=== PATIENT | male | born 1955 | race Caucasian/White ===

== ENCOUNTER 2019-05-07 10:27 | Inpatient (IN) ==
[2019-05-07] MEDS ORDERED: SODIUM CHLORIDE 0.9% 1000ML 1,000 ML IV ONE (11:21)
[2019-05-07 11:37] LABS: Basophils # (auto) 0.03 K/uL (0-0.2); Basophils % (auto) 0.3 %; Eosinophils # (auto) 0.08 K/uL (0-0.5); Eosinophils % (auto) 0.8 %; Hematocrit (blood only) 46.1 % (42-52); Hemoglobin 15.4 g/dL (14.0-18.0); Immature Granulocytes # (auto) 0.02 K/uL (0.00-0.02); Immature Granulocytes % (auto) 0.2 %; Lymphocytes # (auto) 1.75 K/uL (1.2-3.4); Lymphocytes % (auto) 17.6 %; Mean Corpuscular Hgb Conc 33.4 g/dL (32-36); Mean Corpuscular Volume 86.8 fL (80-100); Mean Platelet Volume 11.1 fL (7.4-10.4); Monocytes # (auto) 0.92 K/uL (0.11-0.59); Monocytes % (auto) 9.3 %; Neutrophils # (auto) 7.12 K/uL (1.4-6.5); Neutrophils % (auto) 71.8 %; Platelet Count 194 K/uL (130-400); RDW Coefficient of Variation 14.1 % (11.5-14.5); RDW Standard Deviation 44.8 fL (36.4-46.3); Red Blood Count 5.31 M/uL (4.7-6.1); White Blood Count 9.92 K/uL (4.8-10.8)
--- NOTE | 2019-05-07 11:42 | Emergency Department Note ---
History of Present Illness General Chief complaint: Respiratory Problems Stated complaint: CANNOT BREATH Time Seen by Provider: 05/07/19 11:02 History of Present Illness 54-year-old male who presents to the emergency department with complaint of shortness of breath, fatigue, getting winded with walking, and mild chest discomfort. The patient reports that he noticed that he had no energy 2 weeks ago. He did not have any chest discomfort at that time. Over the past 3 days, he now reports that he can only walk about 10 steps before he gets winded and has to stop for several minutes before walking a another 10 steps. The patient has never had this before in the past. The patient denies any personal or f amily history of heart disease. The patient has not noticed any swelling of the legs. The patient has not had any recent upper respiratory infections. Patient takes medicine for acid reflux and blood pressure, however he has not taken his medicines for approximately 2 months as his insurance changed at work. He reports that his PCP in [place], Dr. Wyman, does not take his insurance. He is in the process of trying to find another PCP. The patient did take 2 ibuprofen this morning for the discomfort. The patient currently denies any chest pain. Home Medications Home Medications Medication Instructions Recorded Confirmed Type esomeprazole magnesium [Nexium] 20 mg PO DAILY 05/07/19 05/07/19 History Allergies Allergy/AdvReac Type Severity Reaction Status Date / Time shrimp Allergy Swelling Unverified 05/07/19 12:10 of Lip/Tongue/Throat Past Med/Surg History Medical History (Updated 05/07/19 @ 20:43 by Kapil Hoffmann) GERD (gastroesophageal reflux disease) GERD (gastroesophageal reflux disease) Hypertension Obstructive sleep apnea Surgical History No significant past surgical history Social History Preferred Language: Slovenian Communication Ability: Effective Writer Producer Required: No Beliefs That Will Affect Care: None Current Living Situation: Alone Other Information That Helps Us Care for You: No Feels Safe at Home: Yes Safety Concerns: Feels Safe At This Time Smoking Status: Never smoker Do You Dip or Chew Tobacco: No ; Second Hand Exposure: No ; Tobacco Cessation Education Requested by Patient: No Hx Alcohol Use: No Hx Substance Use: No Review of Systems 10 system review was performed and was negative except for pertinent positives and negatives as indicated in history of present illness Physical Exam Vital Signs Vital Signs - 24 hr 05/07/19 10:39 05/07/19 10:57 05/07/19 11:00 Temperature 36.5 C Temperature Source Oral Pulse Rate 110 H 117 H 109 H Pulse Rate from SpO2 Sensor Respiratory Rate 28 H 15 14 Respiratory Effort / Characteristics Respiratory Depth Respiratory Pattern Blood Pressure 163/86 H Blood Pressure Mean 111 Pulse Oximetry 96 Oxygen Delivery Method Room Air Sepsis Recent Fever Within 48 Hours No Sepsis New/Unexplained Change in Mental Status No Sepsis Action Taken by Nursing No Action Required 05/07/19 11:03 05/07/19 11:25 05/07/19 11:30 Temperature Temperature Source Pulse Rate 107 H Pulse Rate from SpO2 Sensor Respiratory Rate 18 Respiratory Effort / Characteristics Non-Labored Spontaneous Respiratory Depth Normal Respiratory Pattern Regular Blood Pressure Blood Pressure Mean Pulse Oximetry 97 Oxygen Delivery Method Room Air Room Air Sepsis Recent Fever Within 48 Hours Sepsis New/Unexplained Change in Mental Status Sepsis Action Taken by Nursing 05/07/19 12:00 05/07/19 12:25 05/07/19 12:26 Temperature Temperature Source Pulse Rate 105 H 108 H 104 H Pulse Rate from SpO2 Sensor 94 H 105 H Respiratory Rate 16 16 19 Respiratory Effort / Characteristics Respiratory Depth Respiratory Pattern Blood Pressure 135/95 Blood Pressure Mean 99 Pulse Oximetry 95 96 Oxygen Delivery Method Room Air Room Air Sepsis Recent Fever Within 48 Hours Sepsis New/Unexplained Change in Mental Status Sepsis Action Taken by Nursing 05/07/19 12:30 05/07/19 13:00 05/07/19 13:01 Temperature Temperature Source Pulse Rate 103 H 96 H 100 H Pulse Rate from SpO2 Sensor 88 96 H 104 H Respiratory Rate 16 18 16 Respiratory Effort / Characteristics Respiratory Depth Respiratory Pattern Blood Pressure Blood Pressure Mean Pulse Oximetry 97 97 97 Oxygen Delivery Method Room Air Room Air Room Air Sepsis Recent Fever Within 48 Hours Sepsis New/Unexplained Change in Mental Status Sepsis Action Taken by Nursing CONSTITUTIONAL: Morbidly obese male, alert and oriented X 3. Does not appear in any acute distress. HEENT: Normocephalic, atraumatic. Pupils equal, round and reactive. No scleral icterus or conjunctival injection/pallor. NECK: Full active range of motion without discomfort. No JVD or carotid bruits. LYMPHATICS: No cervical chain adenopathy. RESPIRATORY: Clear to auscultation bilaterally with no wheezing, crackles, rhonchi or stridor. CARDIOVASCULAR: Irregular rate and rhythm with no murmurs, rubs or gallops appreciated. GASTROINTESTINAL: Bowel sounds present in all quadrants. Soft and nontender to palpation without hepatosplenomegaly. MUSCULOSKELETAL: Full range of motion of all joints without discomfort. No peripheral edema noted. INTEGUMENTARY: No rash or other significant dermatologic conditions noted. HEMATOLOGIC: No ecchymosis or petechiae. PSYCHIATRIC: Positive affect. NEUROLOGIC: No focal neurologic deficits noted. Course Course Patient history and physical exam were performed. Nurse's notes were reviewed. Vital signs were reviewed, showing an elevated blood pressure of 163/86. Triage pulse rate was 110 with a respiratory rate of 28. O2 saturation was 97% on room air. An ECG was performed in triage, showing atrial fibrillation with a rapid ventricular response of 109 bpm. An incomplete right bundle branch block is also noted. I did review medical records at our facility, and do not see any prior ECGs for comparison. The patient again reports no prior history of atrial fibrillation or other heart disease. IV access was established, and labs were drawn. The patient was hydrated with a liter of normal saline. The patient was placed on lead custodian. During my interview, the patient's heart rate did reach into the upper 120s, but then came back into the lower 100s. I also discussed the case with Dr. Robertson, ED attending physician, who did not recommend medications for rate control at this time. The patient was administered IV heparin with a 5000 unit bolus. Labs were reviewed, showing a mildly bumped troponin. The patient was then administered aspirin 324 mg chew. Otherwise remaining labs were grossly normal. A portable chest x-ray shows mild cardiomegaly without any other acute findings. The case was then discussed with the ed case manager, who contacted Dr. Buenrostro with the [facility] hospitalist service. He will further evaluate the patient for admission, and has requested that we order metoprolol 5 mg IVP for rate control. I did offer to call and speak with cardiology, but Dr. Buenrostro reported that he would do this for us. Please see the hospitalist service's dictations for further treatment and final disposition. Administered Medications Acetaminophen (Tylenol) 650 mg PO Q4H PRN PRN Reason: Pain Stop: 06/06/19 17:07 Last Admin: 05/07/19 17:20 Dose: 650 mg Documented by: [id number] Heparin Sodium/Dextrose (Heparin Sodium/Dextrose) 25,000 units in 500 mls @ 37 mls/hr IV .[id number] [facility]; Protocol Stop: 06/06/19 11:29 Last Titration: 05/07/19 19:08 Dose: 1,850 units/hr, 37 mls/hr Documented by: [id number] Cosigned by: [id number] Titration: 05/07/19 14:59 Dose: 1,850 units/hr, 37 mls/hr Documented by: [id number] Cosigned by: [id number] Admin: 05/07/19 12:20 Dose: 1,850 units/hr, 37 mls/hr Documented by: [id number] Cosigned by: [id number] Metoprolol Tartrate (Lopressor) 50 mg PO BID [facility] Stop: 06/06/19 20:59 Last Admin: 05/07/19 20:07 Dose: 50 mg Documented by: [id number] Discontinued Medications Aspirin (Aspirin Chew) 324 mg PO NOW STA Stop: 05/07/19 12:31 Last Admin: 05/07/19 12:48 Dose: 324 mg Documented by: [id number] Heparin Sodium (Porcine) (Heparin Iv Bolus) Confirm Administered Dose 10,000 units .ROUTE .STK-MED ONE Stop: 05/07/19 12:13 Last Admin: 05/07/19 12:19 Dose: 5,000 units Documented by: [id number] Cosigned by: [id number] Heparin Sodium/Dextrose () 1 ea IV NOW STA; Protocol Stop: 05/07/19 11:22 Last Admin: 05/07/19 12:19 Dose: Not Given Documented by: [id number] Sodium Chloride (Nss 1000ml) 1,000 mls @ 999 mls/hr IV .[id number] ONE Stop: 05/07/19 12:21 Last Infusion: 05/07/19 13:19 Dose: 0 mls/hr Documented by: [id number] Admin: 05/07/19 12:18 Dose: 999 mls/hr Documented by: [id number] Metoprolol Tartrate (Lopressor) 5 mg IV NOW STA Stop: 05/07/19 12:31 Last Admin: 05/07/19 13:57 Dose: Not Given Documented by: [id number] Metoprolol Tartrate (Lopressor) 25 mg PO ONE ONE Stop: 05/07/19 13:25 Last Admin: 05/07/19 14:04 Dose: 25 mg Documented by: [id number] Critical Care Time Critical Care Time: Yes Total Critical Care Time: 40 I have personally approximately 40 minutes of critical care time in the direct management of this patient. This includes bedside care, interpretation of diagnostic studies, and testing, discussion with consultants, patient, and family members, and other required patient management activities. This 40 minutes is in excess of all separately billable procedures. It was felt that the patient met critical care criteria, requiring intravenous heparin. I did discuss the risks of bleeding with the patient, and he agreed to heparin administration, and to further reduce the risk for embolus. Medical Decision Making Medical Records Attestation: I reviewed the patient's medical records. Home Medications Current Medication List: was personally reviewed by me Laboratory Data Attestation: I reviewed the patient's lab results. Result diagrams: 05/07/19 11:21 05/07/19 11:21 Lab Results 05/07/19 05/07/19 05/07/19 Range/Units 11:21 11:21 11:21 WBC 9.92 (4.8-10.8) K/uL RBC 5.31 (4.7-6.1) M/uL Hgb 15.4 (14.0-18.0) g/dL Hct 46.1 (42-52) % MCV 86.8 (80-100) fL MCH 29.0 (25-34) pg MCHC 33.4 (32-36) g/dL RDW Std Deviation 44.8 (36.4-46.3) fL RDW Coeff of Robert 14.1 (11.5-14.5) % Plt Count 194 (130-400) K/uL MPV 11.1 H (7.4-10.4) fL Immature Gran % (Auto) 0.2 % Neut % (Auto) 71.8 % Lymph % (Auto) 17.6 % [place] % (Auto) 9.3 % Eos % (Auto) 0.8 % Baso % (Auto) 0.3 % Immature Gran # (Auto) 0.02 (0.00-0.02) K/uL Neut # (Auto) 7.12 H (1.4-6.5) K/uL Lymph # (Auto) 1.75 (1.2-3.4) K/uL [place] # (Auto) 0.92 H (0.11-0.59) K/uL Eos # (Auto) 0.08 (0-0.5) K/uL Baso # (Auto) 0.03 (0-0.2) K/uL PT 10.9 (9.0-12.0) Seconds INR 1.1 (0.9-1.1) APTT 26.7 (21.0-31.0) Seconds PTT Ratio 1.0 Sodium 140 (136-145) mmol/L Potassium 3.6 (3.5-5.1) mmol/L Chloride 107 (98-107) mmol/L Carbon Dioxide 27 (21-32) mmol/L Anion Gap 6.0 (3-11) BUN 17 (7-18) mg/dl Creatinine 1.15 (0.6-1.4) mg/dl Est Cr Clr Drug Dosing 95.8 ml/min Est GFR ( Amer) 78.6 Est GFR (Non-Af Amer) 67.8 BUN/Creatinine Ratio 15.1 (10-20) Glucose 111 H (70-99) mg/dl Calcium 8.7 (8.5-10.1) mg/dl Phosphorus 2.6 (2.5-4.9) mg/dl Magnesium 2.3 (1.8-2.4) mg/dl Total Bilirubin 1.2 H (0.2-1) mg/dl AST 17 (15-37) U/L ALT 37 (12-78) U/L Alkaline Phosphatase 69 (45-117) U/L Troponin I 0.047 H* (0-0.045) ng/ml NT-Pro-B Natriuret Pep (0-900) pg/ml Total Protein 6.9 (6.4-8.2) gm/dl Albumin 3.5 (3.4-5.0) gm/dl Globulin 3.4 (2.5-4.0) gm/dl Albumin/Globulin Ratio 1.0 (0.9-2) Lipase 70 L (73-393) U/L TSH 1.100 (0.300-4.500) uIu/ml Hepatitis C Ab Screen (Neg) 05/07/19 05/07/19 Range/Units 11:21 11:21 WBC (4.8-10.8) K/uL RBC (4.7-6.1) M/uL Hgb (14.0-18.0) g/dL Hct (42-52) % MCV (80-100) fL MCH (25-34) pg MCHC (32-36) g/dL RDW Std Deviation (36.4-46.3) fL RDW Coeff of Robert (11.5-14.5) % Plt Count (130-400) K/uL MPV (7.4-10.4) fL Immature Gran % (Auto) % Neut % (Auto) % Lymph % (Auto) % [place] % (Auto) % Eos % (Auto) % Baso % (Auto) % Immature Gran # (Auto) (0.00-0.02) K/uL Neut # (Auto) (1.4-6.5) K/uL Lymph # (Auto) (1.2-3.4) K/uL [place] # (Auto) (0.11-0.59) K/uL Eos # (Auto) (0-0.5) K/uL Baso # (Auto) (0-0.2) K/uL PT (9.0-12.0) Seconds INR (0.9-1.1) APTT (21.0-31.0) Seconds PTT Ratio Sodium (136-145) mmol/L Potassium (3.5-5.1) mmol/L Chloride (98-107) mmol/L Carbon Dioxide (21-32) mmol/L Anion Gap (3-11) BUN (7-18) mg/dl Creatinine (0.6-1.4) mg/dl Est Cr Clr Drug Dosing ml/min Est GFR ( Amer) Est GFR (Non-Af Amer) BUN/Creatinine Ratio (10-20) Glucose (70-99) mg/dl Calcium (8.5-10.1) mg/dl Phosphorus (2.5-4.9) mg/dl Magnesium (1.8-2.4) mg/dl Total Bilirubin (0.2-1) mg/dl AST (15-37) U/L ALT (12-78) U/L Alkaline Phosphatase (45-117) U/L Troponin I (0-0.045) ng/ml NT-Pro-B Natriuret Pep 3645 H (0-900) pg/ml Total Protein (6.4-8.2) gm/dl Albumin (3.4-5.0) gm/dl Globulin (2.5-4.0) gm/dl Albumin/Globulin Ratio (0.9-2) Lipase (73-393) U/L TSH (0.300-4.500) uIu/ml Hepatitis C Ab Screen Neg (Neg) Imaging Data Attestation: I personally reviewed and interpreted this imaging study as follows: My Impression: My interpretation of a portable chest x-ray does not show any consolidations, pneumothorax or widened mediastinum. Mild cardiomegaly is noted. Radiologist report was reviewed. Radiologist's Impression: XR chest 1V portable CLINICAL HISTORY: 64 years-old Male presenting with Chest Pain. TECHNIQUE: Portable upright AP view of the chest was obtained. COMPARISON: None. FINDINGS: Cardiac silhouette mildly enlarged. No focal opacity. No large effusion or pneumothorax. Degenerative changes of the thoracic spine. Upper abdomen normal. IMPRESSION: 1. Mild cardiomegaly. Otherwise no acute cardiopulmonary disease. Blood Pressure Blood Pressure Findings: Elevated blood pressure (It is noted that the patient's blood pressure did normalize while in the emergency department.) MDM Narrative Patient presents the emergency department with complaint of fatigue and dyspnea on exertion. The patient's ECG does show atrial fibrillation with a rapid ventricular response that had good rate control while in the emergency department. He also has a mildly bumped troponin of unknown significance. The patient was admitted IV heparin and aspirin for his condition. The patient's heart rate did remain in the lower 100s, and rate control was not ordered until discussing the case with Dr. Buenrostro. The patient is afebrile and does not have a leukocytosis to suggest infectious etiology. The patient is hemodynamically stable at the time of transfer. There are no other electrolyte abnormalities noted on today's work-up. The patient is euthyroid. The patient was administered IV heparin given his risk of embolus. Impression & Plan New onset atrial fibrillation, Hypertension, Elevated troponin, Dyspnea on exertion, Cardiomegaly Discharge Plan Visit Data *Final* Discharge Date/Time: 05/07/19 14:30 Chief Complaint: Respiratory Problems Stated Complaint: CANNOT BREATH ED Provider: Tomas Robertson ED Midlevel Provider: Kapil Hoffmann Discharge Problem: New onset atrial fibrillation, Hypertension, Elevated troponin, Dyspnea on exertion, Cardiomegaly Patient Disposition: Admitted As Inpatient Discharge Instructions Interventions: ED Discharge Assessment Last Done: 05/07/19 14:30 Discharge Problem: Hypertension Qualifiers: Hypertension type: unspecified secondary hypertension Qualified Code(s): I15.9 - Secondary hypertension, unspecified
--- NOTE | 2019-05-07 11:44 | XRay Report ---
XR chest 1V portable CLINICAL HISTORY: 64 years-old Male presenting with Chest Pain. TECHNIQUE: Portable upright AP view of the chest was obtained. COMPARISON: None. FINDINGS: Cardiac silhouette mildly enlarged. No focal opacity. No large effusion or pneumothorax. Degenerative changes of the thoracic spine. Upper abdomen normal. IMPRESSION: 1. Mild cardiomegaly. Otherwise no acute cardiopulmonary disease. ACT 112: Negative or not required by law. Electronically signed by: Getachew Sanchez M.D. 05/07/2019 11:42 AM
[2019-05-07 11:51] LABS: INR 1.1 (0.9-1.1); Partial Thromboplastin Time 26.7 Seconds (21.0-31.0); Prothrombin Time 10.9 Seconds (9.0-12.0)
[2019-05-07 12:00] LABS: Albumin Level 3.5 gm/dl (3.4-5.0); BUN Creatinine Ratio 15.1 (10-20); Calcium 8.7 mg/dl (8.5-10.1); Creatinine Clr Calc Pharmacy 95.8 ml/min; Est GFR (African American) 78.6; Est GFR (Non-African American) 67.8; Magnesium 2.3 mg/dl (1.8-2.4); Potassium 3.6 mmol/L (3.5-5.1)
[2019-05-07] MEDS ORDERED: HEPARIN SOD (PORCINE) 1000 UNIT/ML 10 ML VIAL ONE (12:12)
[2019-05-07 12:17] LABS: Bilirubin,Total 1.2 mg/dl (0.2-1); Globulin 3.4 gm/dl (2.5-4.0); Phosphorus 2.6 mg/dl (2.5-4.9); Thyroid Stimulating Hormone 1.1 uIu/ml (0.300-4.500); Total Protein 6.9 gm/dl (6.4-8.2); Troponin I 0.047 ng/ml (0-0.045)
[2019-05-07] MEDS: HEPARIN SODIUM/DEXTROSE 25,000 UNITS/500 ML BAG IV SCH (12:20)
[2019-05-07] MEDS ORDERED: ASPIRIN 81 MG CHEW PO STA (12:30)
[2019-05-07] MEDS ORDERED: METOPROLOL TARTRATE 1 MG/ML VIAL IV STA (12:30)
--- NOTE | 2019-05-07 12:46 | History & Physical Report ---
Date of Service May 07, 2019 Assessment & Plan (1) New onset atrial fibrillation: TSH WNL, No alcohol. Echocardiogram concerning for CAD with inferior wall severe hypokinesis therefore cardiology consulted (see below) Unclear onset therefore will avoid antiarrhythmics. Rate control with metoprolol tartrate 50mg BID (given 25mg initially). Anticoagulation: continue on heparin IV pending cardiac cath decision (2) Shortness of breath on exertion: Symptoms appear to be worse than just atrial fibrillation would explain and suspect some underlying coronary artery disease which would fit with his echocardiogram results. Suspect some degree of obesity hypoventilation in addition. No pulmonary edema on CXR to suggest patient in heart failure and will defer any lasix at this stage. Continue ASA 81 mg. Lipids and HbA1C with AM labs. Will start statin based upon these. (3) Elevated troponin: Appears relatively stable. Suspect demand-ischemia in setting of increased ventricular rate. No chest pain to suggest ACS. (4) Cardiomyopathy: presumed ischemic at this stage. Consult cardiology. (5) GERD (gastroesophageal reflux disease): Switch Nexium to pantoprazole as per hospital formulary (6) Hypertension: Previously on medication for this but stopped after he lost his insurance. Will treat with metoprolol for now primarily for rate control and monitor. (7) Obstructive sleep apnea: CPAP @ night (8) DVT prophylaxis: currently on full anticoagulation with heparin IV drip History of Present Illness Chief Complaint: Shortness of breath, atrial fibrillation/flutter Primary Care Provider: NO PCP Loco Robin is a 64 year old male patient unassigned who presented to the ER with shortness of breath on exertion getting progressively worse over the last 2 weeks. No previous known coronary artery or thyroid. He denies any alcohol use. He denies any chest pain, palpitations, leg swelling, claudication. No cough, fevers or chills. No significant change in his symptoms since coming to the ER. He has diagnosed obstructive sleep apnea and is complaint with CPAP. ER workup included labs with unremarkable CBC, total bilirubin 1.2 but otherwise unremarkable CMP. Troponin 0.047. EKG showed atrial fibrillation. CXR - cardiomegaly without acute cardiopulmonary disease He was given 1L bolus of NSS and started on a standard heparin drip with bolus. Allergies Allergy/AdvReac Type Severity Reaction Status Date / Time shrimp Allergy Swelling Unverified 05/07/19 12:10 of Lip/Tongue/Throat Home Medications Home Medications Medication Instructions Recorded Confirmed Type esomeprazole magnesium [Nexium] 20 mg PO DAILY 05/07/19 05/07/19 History Past Med/Surg History Medical History GERD (gastroesophageal reflux disease) Hypertension Surgical History No significant past surgical history Social History Preferred Language: Yoruba Communication Ability: Effective Title Camera Operator Required: No Beliefs That Will Affect Care: None Current Living Situation: Alone Other Information That Helps Us Care for You: No Feels Safe at Home: Yes Safety Concerns: Feels Safe At This Time Smoking Status: Never smoker Do You Dip or Chew Tobacco: No ; Second Hand Exposure: No ; Tobacco Cessation Education Requested by Patient: No Hx Alcohol Use: No Hx Substance Use: No Review of Systems Review of Systems: All systems reviewed & are unremarkable except as noted in HPI & below Physical Exam Constitutional: well developed and + morbidly obese; no acute distress Eyes: + anicteric sclerae; normal pupil size ENMT: external ear and nose normal, oropharynx normal Neck: trachea midline, + short neck and + thick neck Respiratory: normal respiratory effort, lungs clear to auscultation Cardiovascular: Rate/Rhythm: + irregularly irregular Heart Sounds: no murmur Vessels: + JVD (unable to assess due to neck size) Extremities: + pedal edema (1+ to thighs b/l) Gastrointestinal (Abdomen): normal bowel sounds, soft, nontender, no hepatosplenomegaly Musculoskeletal: no cyanosis or clubbing, extremities motor strength 5/5 Skin: no rashes, warm and dry Neurologic: moves all extremities and awake; no focal motor deficits and not confused Speech / Cognition: normal speech Motor/Sensory: no tremor Psychiatric: A+Ox3, euthymic affect Lymphatic: no cervical or axillary lymphadenopathy Results & Data Vital Signs (Past 12 Hours) Vital Signs Temp Pulse Resp BP Pulse Ox 05/07/19 12:25 108 H 16 135/95 95 05/07/19 12:00 105 H 16 05/07/19 11:30 107 H 18 05/07/19 11:25 97 05/07/19 11:00 109 H 14 05/07/19 10:57 117 H 15 05/07/19 10:39 36.5 C 110 H 28 H 163/86 H 96 Code Status & VTE Plan Code Status Full as discussed with the patient VTE Prophylaxis Plan VTE Prophylaxis will be ordered: Yes PG Care Time/CCT Total # of Minutes Spent Total Time Spent with Patient: Total time spent is greater than 50% in coordination of care (as documented) at patient's floor/unit and/or counseling patient: (1) GERD (gastroesophageal reflux disease) Esophagitis presence: without esophagitis Qualified Code(s): K21.9 - Gastro- esophageal reflux disease without esophagitis (2) Hypertension Hypertension type: essential hypertension Qualified Code(s): I10 - Essential (primary) hypertension (3) Cardiomyopathy Cardiomyopathy type: unspecified Qualified Code(s): I42.9 - Cardiomyopathy, unspecified
[2019-05-07] MEDS ORDERED: METOPROLOL TARTRATE 25 MG TAB PO ONE (13:24)
--- NOTE | 2019-05-07 16:05 | Electrocardiogram Report ---
Test Reason : Blood Pressure : / mmHG Vent. Rate : 109 BPM Atrial Rate : 092 BPM P-R Int : 000 ms QRS Dur : 094 ms QT Int : 326 ms P-R-T Axes : 000 024 -11 degrees QTc Int : 439 ms Atrial fibrillation with rapid ventricular response Incomplete right bundle branch block Abnormal ECG No previous ECGs available Confirmed by Raheem Hilliard ([id number]) on 05/07/2019 4:05:18 PM Referred By: Confirmed By:Raheem Hilliard
--- NOTE | 2019-05-07 16:29 | Electrocardiogram Report ---
Test Reason : Blood Pressure : / mmHG Vent. Rate : 085 BPM Atrial Rate : 000 BPM P-R Int : 000 ms QRS Dur : 108 ms QT Int : 424 ms P-R-T Axes : 000 076 -18 degrees QTc Int : 504 ms Atrial fibrillation Incomplete right bundle branch block Abnormal ECG When compared with ECG of 07-MAY-2019 10:51, No significant change Confirmed by Raheem Hilliard ([id number]) on 05/07/2019 4:28:50 PM Referred By: REFERRED SELF Confirmed By:Raheem Hilliard
[2019-05-07] MEDS: ACETAMINOPHEN 325 MG TAB PO PRN (17:20)
[2019-05-07 18:45] LABS: Partial Thromboplastin Ratio 2.2
[2019-05-07 18:49] LABS: Partial Thromboplastin Time 58.4 Seconds (21.0-31.0)
[2019-05-07] MEDS: METOPROLOL TARTRATE 50 MG TAB PO SCH (20:07)
[2019-05-07] MEDS ORDERED: METOPROLOL TARTRATE 25 MG TAB PO SCH (21:00)
[2019-05-08] MEDS: HEPARIN SODIUM/DEXTROSE 25,000 UNITS/500 ML BAG IV SCH ×2 (01:39→16:50)
[2019-05-08 07:19] LABS: Hematocrit (blood only) 43.4 % (42-52); Hemoglobin 14.7 g/dL (14.0-18.0); Mean Corpuscular Hemoglobin 29.4 pg (25-34); Mean Corpuscular Hgb Conc 33.9 g/dL (32-36); Mean Corpuscular Volume 86.8 fL (80-100); Mean Platelet Volume 11.1 fL (7.4-10.4); Platelet Count 198 K/uL (130-400); RDW Coefficient of Variation 14.1 % (11.5-14.5); RDW Standard Deviation 44.8 fL (36.4-46.3); White Blood Count 7.97 K/uL (4.8-10.8)
[2019-05-08 07:47] LABS: Partial Thromboplastin Ratio 2.5
[2019-05-08 07:49] LABS: Estimated Average Glucose 126 mg/dl
[2019-05-08 07:50] LABS: Partial Thromboplastin Time 66.4 Seconds (21.0-31.0)
[2019-05-08] MEDS: ACETAMINOPHEN 325 MG TAB PO PRN (07:50)
[2019-05-08] MEDS: PANTOprazole 40 MG TAB PO SCH (07:54)
[2019-05-08] MEDS: METOPROLOL TARTRATE 50 MG TAB PO SCH (07:54)
[2019-05-08] MEDS: ASPIRIN 81 MG ECTAB PO SCH (07:54)
[2019-05-08 07:55] LABS: Albumin Level 3.2 gm/dl (3.4-5.0); Bilirubin,Total 1.3 mg/dl (0.2-1); Calcium 8.6 mg/dl (8.5-10.1); Creatinine Clr Calc Pharmacy 111.4 ml/min; Est GFR (African American) 95.4; Est GFR (Non-African American) 82.3; Globulin 3.2 gm/dl (2.5-4.0); Potassium 3.6 mmol/L (3.5-5.1); Total Protein 6.4 gm/dl (6.4-8.2)
--- NOTE | 2019-05-08 09:26 | Cardiology Consultation ---
Date of Consultation May 08, 2019 Assessment & Plan (1) Shortness of breath on exertion: I suspect his dyspnea on exertion is primarily congestive heart failure not atrial fibrillation. The atrial fibrillation may contribute since he has not been feeling quite well for the last month, however the severe change several days prior to admission probably represents fluid overload. He feels better and seems to have lost some weight here in the hospital. He could also have shortness of breath as an anginal equivalent. (2) New onset atrial fibrillation: He presents in atrial fibrillation, but the duration is not clear. He does not feel palpitations so this could have occurred any time, I do not know when the last time it would have been observed is, he does not recall having any type of cardiac testing in the past. It could have started a month ago when he started to feel poorly although it could have occurred much before that and that may be related to his developing a cardiomyopathy. I would treated as though it is relatively recent onset, such as a month, and for that I would use rate control and anticoagulation and anticipate cardioversion in around a month. It is possible also that it is paroxysmal and that will resolve on its own. (3) Cardiomyopathy: He has a cardiomyopathy which includes wall motion abnormalities and this may be an ischemic cardiomyopathy although there is a global component as well. I suspect that he may have coronary disease based on his enzymes, his wall motion abnormality and the possibility of inferior Q waves even though he has no history of a myocardial infarction. I think we need to perform catheterization to see if we can identify cause of his cardiomyopathy. I will order some blood tests for cardiomyopathy, additionally it could be due to the atrial fibrillation itself or idiopathic although these are diagnoses of exclusion. We need to get him on appropriate heart failure medications for his left ventricular dysfunction. I am going to switch his metoprolol tartrate to carvedilol which should work for heart rate control and is better for his cardiomyopathy. He should also be on an ALEKSANDRA or an ARB or Entresto, I think I will hold off on doing that until after the catheterization in case it would affect his renal function. I have tentatively scheduled him for catheterization tomorrow. (4) Elevated troponin: His troponin is slightly elevated, this could indicate underlying coronary disease or could simply be demand ischemia from heart failure and hypertension. We will evaluate him for coronary artery disease at catheterization. (5) CHF exacerbation: I believe he is in congestive heart failure, I believe that is why he presented and his symptoms are consistent. I think we should diurese him a little bit prior to catheterization. I am going to order a diuretic today, I do not want to over diurese him but his creatinine is normal so it is not too concerning regarding his upcoming catheterization. (6) Mitral regurgitation: He has mild mitral regurgitation on echocardiography. This may be related to his left ventricular dilatation, perhaps with medical therapy this will correct. History of Present Illness Reason for Consultation: CHF, Elevated Troponin Attending Physician: Victoriano Buenrostro MD History of Present Illness This is a 64-year-old male with hypertension, hypercholesterolemia and obesity who has no known heart disease and had been in his usual health until about a month ago when he began to have some dyspnea on exertion. Possibly related he ran out of his medications as he is in the process of switching doctors due to insurance reasons. This was somewhat intermittent, it was not really associated with chest pain at the time although his description of chest tightness could be shortness of breath or anginal symptoms. 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 He was not having rest symptoms and he was not having orthopnea or PND at the time. He then developed significant worsening of his shortness of breath about 2 days prior to admission, especially at night which is consistent with orthopnea. He also noticed that when he exerted himself he can only walk about 10 steps before being quite short of breath and having a squeezing sensation in his chest. He would rest and it would go away in a few minutes. This was consistent and different therefore he came into the emergency room on May 07, 2019. He has had no further symptoms since admission. He does notice that he had a little bit of leg swelling on the left for a week or so, mostly he noticed this is little trouble bending his left knee when he put on his socks. In the emergency room he was observed to have atrial fibrillation of which he was completely unaware and has no prior history. He also had low-grade cardiac enzymes and echocardiography has shown left ventricular dysfunction with wall motion abnormalities. His chest x-ray was not diagnostic for heart failure but I believe he does have vascular prominence. This morning at the time of my evaluation he was feeling better, he did not have difficulty during the night with his breathing and has had no further chest tightness. His rate was controlled with beta-blockade and he is on intravenous heparin. Allergies Allergy/AdvReac Type Severity Reaction Status Date / Time shrimp Allergy Swelling Unverified 05/07/19 12:10 of Lip/Tongue/Throat Home Medications Home Medications Medication Instructions Recorded Confirmed Type esomeprazole magnesium [Nexium] 20 mg PO DAILY 05/07/19 05/07/19 History Patient History Medical History GERD (gastroesophageal reflux disease) GERD (gastroesophageal reflux disease) Hypertension Obstructive sleep apnea Surgical History No significant past surgical history Social History Preferred Language: Irish Communication Ability: Effective Director Of Curriculum Required: No Beliefs That Will Affect Care: None Current Living Situation: Alone Other Information That Helps Us Care for You: No Feels Safe at Home: Yes Safety Concerns: Feels Safe At This Time Smoking Status: Never smoker Do You Dip or Chew Tobacco: No ; Second Hand Exposure: No ; Tobacco Cessation Education Requested by Patient: No Hx Alcohol Use: No Hx Substance Use: No Review of Systems Review of Systems: All systems reviewed & are unremarkable except as noted in HPI & below Physical Exam Physical Exam: Constitutional: Alert, cooperative and in no distress. HEENT: Unremarkable Neck: No jugular venous distention, carotid pulses are irregular but otherwise normal and equal bilaterally without bruits. Pulmonary: Clear to auscultation bilaterally. Cardiac: Irregular rhythm with no murmur, gallop or rub. Abdomen: Soft, nontender with normal bowel sounds. Extremities: No edema. Distal pulses intact. Neurologic: No focal findings. Gait is steady. Skin: No rash, ecchymoses or petechiae. Results & Data Vital Signs (Past 12 Hours) Vital Signs Temp Pulse Pulse Resp BP Pulse Ox 05/08/19 07:52 36.4 C L 80 18 125/83 97 05/08/19 03:30 36.1 C L 80 20 152/90 H 97 05/08/19 00:19 36.5 C 83 20 151/96 H 99 05/08/19 00:00 88 05/07/19 22:20 95 H 18 94 Laboratory Results Cardiac Enzymes 05/07/19 05/07/19 05/08/19 Range/Units 11:21 17:57 06:54 AST 17 18 (15-37) U/L Troponin I 0.047 H* 0.055 H* (0-0.045) ng/ml Coagulation 05/07/19 05/07/19 05/08/19 Range/Units 11:21 17:57 06:54 PT 10.9 (9.0-12.0) Seconds APTT 26.7 58.4 H* 66.4 H* (21.0-31.0) Seconds Lipids 05/08/19 Range/Units 06:54 Triglycerides 98 (0-150) mg/dl Cholesterol 148 (0-200) mg/dl HDL Cholesterol 52 mg/dl Cholesterol/HDL Ratio 3 CBC 05/07/19 05/08/19 Range/Units 11:21 06:54 WBC 9.92 7.97 (4.8-10.8) K/uL RBC 5.31 5.00 (4.7-6.1) M/uL Hgb 15.4 14.7 (14.0-18.0) g/dL Hct 46.1 43.4 (42-52) % Plt Count 194 198 (130-400) K/uL Neut # (Auto) 7.12 H (1.4-6.5) K/uL Lymph # (Auto) 1.75 (1.2-3.4) K/uL [place] # (Auto) 0.92 H (0.11-0.59) K/uL Eos # (Auto) 0.08 (0-0.5) K/uL Baso # (Auto) 0.03 (0-0.2) K/uL Comprehensive Metabolic Panel 05/07/19 05/08/19 Range/Units 11:21 06:54 Sodium 140 137 (136-145) mmol/L Potassium 3.6 3.6 (3.5-5.1) mmol/L Chloride 107 106 (98-107) mmol/L Carbon Dioxide 27 27 (21-32) mmol/L BUN 17 15 (7-18) mg/dl Creatinine 1.15 0.98 (0.6-1.4) mg/dl Glucose 111 H 102 H (70-99) mg/dl Calcium 8.7 8.6 (8.5-10.1) mg/dl AST 17 18 (15-37) U/L ALT 37 31 (12-78) U/L Alkaline Phosphatase 69 61 (45-117) U/L Total Protein 6.9 6.4 (6.4-8.2) gm/dl Albumin 3.5 3.2 L (3.4-5.0) gm/dl Intake and Output 05/07/19 05/08/19 05/08/19 22:59 06:59 14:59 Intake Total 611.067 / 1812.717 103.6 / 1812.717 251.600 / 251.600 Output Total 1250 / 1500 250 / 1500 200 / 200 Balance -638.933 / 312.717 -146.4 / 312.717 51.600 / 51.600 Intake: IV 291.067 / 1492.717 103.6 / 1492.717 251.600 / 251.600 HEPARIN SODIUM/DEXTROSE 25,000 291.067 / 492.717 103.6 / 492.717 251.600 / 251.600 units In 500 ml @ 1,850 UNITS/ HR 37 mls/hr IV .[id number] [facility] Rx #:[id number] Oral 320 / 320 Output: Urine 1250 / 1500 250 / 1500 200 / 200 Other: Other Intake Source npo Weight 145.8 kg Diagnostic Findings His electrocardiogram May 07, 2019 at 10:50 AM shows atrial fibrillation with a heart rate of 109 bpm. He has an incomplete right bundle branch block. There are nondiagnostic inferior Q waves. This electrocardiogram was repeated May 07, 2019 at 1601, this shows atrial fibrillation at a rate of 85 bpm with nondiagnostic inferior Q waves. He continues to have incomplete right bundle branch block. Telemetry: Atrial fibrillation, initially a somewhat rapid heart rate but quickly controlled. Echocardiography: Done May 07, 2019 showed a moderately dilated left ventricle with concentric left ventricular hypertrophy and ejection fraction of 40 to 45%. There is global hypokinesis with severe inferior wall hypokinesis. There is evidence of right ventricular pressure overload and moderate mitral regurgitation. He has moderate left atrial dilatation. Chest x-ray: This was read as cardiomegaly with no congestive heart failure, on my review I think there is evidence of vascular congestion. PG Care Time/CCT Total # of Minutes Spent Total Time Spent with Patient: Total time spent is greater than 50% in coordination of care (as documented) at patient's floor/unit and/or counseling patient: (1) Cardiomyopathy Cardiomyopathy type: unspecified Qualified Code(s): I42.9 - Cardiomyopathy, unspecified
[2019-05-08 10:58] LABS: Iron 67 mcg/dl (35-175); Total Iron Binding Capacity 279 mcg/dl (250-450)
[2019-05-08] MEDS ORDERED: FUROSEMIDE 20 MG in SYRINGE 0 ML IV ONE (12:30)
[2019-05-08] MEDS: carvediloL 12.5 MG TAB PO SCH (21:00)
--- NOTE | 2019-05-08 22:33 | Hospitalist Progress Note ---
Date of Service May 08, 2019 Assessment & Plan (1) New onset atrial fibrillation: TSH WNL, No alcohol. Echocardiogram concerning for CAD with inferior wall severe hypokinesis therefore cardiology consulted (see below) Unclear onset therefore will avoid antiarrhythmics. Rate control with metoprolol tartrate 50mg BID (given 25mg initially). Anticoagulation: continue on heparin IV cardiac cath in AM. (2) Shortness of breath on exertion: Acute systolic CHF Echo shows decreased LV function. will continue to diurese Continue ASA 81 mg. Lipids and HbA1C with AM labs. Will start statin based upon these. (3) Elevated troponin: Appears relatively stable. Suspect demand-ischemia in setting of increased ventricular rate. No chest pain to suggest ACS. (4) Cardiomyopathy: presumed ischemic at this stage. Consult cardiology. (5) GERD (gastroesophageal reflux disease): Switch Nexium to pantoprazole as per hospital formulary (6) Hypertension: Previously on medication for this but stopped after he lost his insurance. Will treat with metoprolol for now primarily for rate control and monitor. (7) Obstructive sleep apnea: CPAP @ night (8) DVT prophylaxis: currently on full anticoagulation with heparin IV drip Subjective Patient reports his SOB has improved. He states he is diuresing well. Hereports having intermittent chest pain in the AM, midsternal location, non radiating, dull in nature, occured at rest, lasted 30 mins. Relieved with rest. Review of Systems Review of Systems: All systems reviewed & are unremarkable except as noted in HPI & below Physical Exam Physical Exam: Constitutional: well developed and + morbidly obese; no acute distress Eyes: + anicteric sclerae; normal pupil size ENMT: external ear and nose normal, oropharynx normal Neck: trachea midline, + short neck and + thick neck Respiratory: normal respiratory effort, lungs clear to auscultation Cardiovascular: Rate/Rhythm: + irregularly irregular Heart Sounds: no murmur Vessels: + JVD (unable to assess due to neck size) Extremities: + pedal edema (1+ to thighs b/l) Gastrointestinal (Abdomen): normal bowel sounds, soft, nontender, no hepatosplenomegaly Musculoskeletal: no cyanosis or clubbing, extremities motor strength 5/5 Skin: no rashes, warm and dry Neurologic: moves all extremities and awake; no focal motor deficits and not confused Speech / Cognition: normal speech Motor/Sensory: no tremor Psychiatric: A+Ox3, euthymic affect Lymphatic: no cervical or axillary lymphadenopathy Results & Data Vital Signs (Past 12 Hours) Vital Signs Temp Pulse Pulse Resp BP Pulse Ox 05/08/19 19:31 36.5 C 86 20 135/88 96 05/08/19 15:12 92 H 05/08/19 15:11 36.8 C 88 18 128/83 95 05/08/19 12:31 36.6 C 87 18 146/81 H 94 PG Care Time/CCT Total # of Minutes Spent Total Time Spent with Patient: Total time spent is greater than 50% in coordination of care (as documented) at patient's floor/unit and/or counseling patient: (1) GERD (gastroesophageal reflux disease) Esophagitis presence: without esophagitis Qualified Code(s): K21.9 - Gastro- esophageal reflux disease without esophagitis (2) Hypertension Hypertension type: essential hypertension Qualified Code(s): I10 - Essential (primary) hypertension (3) Cardiomyopathy Cardiomyopathy type: unspecified Qualified Code(s): I42.9 - Cardiomyopathy, unspecified
[2019-05-09] MEDS: HEPARIN SODIUM/DEXTROSE 25,000 UNITS/500 ML BAG IV SCH (06:18)
--- NOTE | 2019-05-09 08:55 | Pre Anesthesia Assessment ---
Date of Service May 09, 2019 Pre Sedation Assessment Vital Signs Temp Pulse Pulse Resp BP Pulse Ox 05/09/19 06:56 36.5 C 88 18 124/76 96 05/09/19 04:00 36.6 C 77 19 120/77 98 05/09/19 03:45 77 18 93 05/08/19 23:45 36.5 C 94 H 19 137/99 97 05/08/19 23:44 118 H 05/08/19 23:30 89 18 94 05/08/19 19:31 36.5 C 86 20 135/88 96 05/08/19 15:12 92 H 05/08/19 15:11 36.8 C 88 18 128/83 95 05/08/19 12:31 36.6 C 87 18 146/81 H 94 Cardiovascular + irregularly irregular Respiratory + respiratory effort normal Pre-Sedation Airway Assessment Smoking Status: Never smoker Hx Sleep Apnea: Yes Hx Difficult Intubation: No Short, Thick Neck: No Thyromental Distance: > or= 3.5 Finger Breadths Oral Cavity: + WNL Mallampati Class: III ASA: ASA3 Procedure Planning Contraindications for Sedation: none Current Medications Reviewed: Yes Notes The planned sedation has been discussed with the patient. Informed Consent was obtained. I have identified the patient, determined the appropriateness of sedation and have assessed the patient immediately prior to the procedure. All medicine(s) and interventions are by my order.
[2019-05-09] MEDS ORDERED: HEPARIN (PORCINE) 1000 UNIT/ML 10 ML (CATH LAB USE ONLY) ONE (10:14)
[2019-05-09] MEDS ORDERED: NiCARDipine HCL INJ 2.5 MG/ML 10 ML AMP ONE (10:14)
[2019-05-09] MEDS ORDERED: fentaNYL citrate 100 MCG/2 ML VIAL ONE (10:15)
[2019-05-09] MEDS ORDERED: NITROGLYCERIN/D5W 100MCG/ML 20ML SYR ONE (10:15)
[2019-05-09] MEDS ORDERED: MIDAZOLAM HCL 1 MG/ML 2ML VIAL ONE (10:15)
--- NOTE | 2019-05-09 10:50 | Post Operative Brief Note ---
Cardiology Brief Post Op Date of Surgery May 09, 2019 Pre & Post Diagnosis Operation Date: 05/09/19 09:30 <No data on this case meets the specified criteria> Procedure LHC, coronaries Fish Net Stringer Joseluis Jonse MD Branch Administrator None Estimated Blood Loss 7 Findings See Below Right dominant mildly elevated LVEDP No obstructive CAD Complications none Disposition Accompanied Patient To Recovery: No Disposition: PCU Overlapping Procedure I was immediately available: during the entire case.
--- NOTE | 2019-05-09 10:51 | Post Anesthesia Assessment ---
Date of Service May 09, 2019 Post Sedation Assessment Vital Signs Temp Pulse Pulse Resp BP Pulse Ox 05/09/19 09:34 90 20 145/119 H 97 05/09/19 06:56 36.5 C 88 18 124/76 96 05/09/19 04:00 36.6 C 77 19 120/77 98 05/09/19 03:45 77 18 93 05/08/19 23:45 36.5 C 94 H 19 137/99 97 05/08/19 23:44 118 H 05/08/19 23:30 89 18 94 05/08/19 19:31 36.5 C 86 20 135/88 96 05/08/19 15:12 92 H 05/08/19 15:11 36.8 C 88 18 128/83 95 05/08/19 12:31 36.6 C 87 18 146/81 H 94 Recovery Score Activity: Moves 4 extremities Respiration: Deep Breath/Cough Circulation: +/-20% PreAnes Value Consciousness: Fully Awake Oxygen Saturation: > 92% On Room Air Discharge Sedation Level of Care: Fast Track Phase II Post Sedation Plan On clinical assessment, the patient appears to have tolerated the sedation without complications. Patient is recovering as anticipated. Patient will continue to be monitored by nursing and may be discharged when sedation discharge criteria are met per below protocol. Upon Completions of procedure up to 15 minutes continue every 5 minute vital signs and the P.A.R. score; then discharge to a Phase I or Fast Track to Phase II per the following guidelines: * Discharge Patient to appropriate Phase II area if PAR is 8 or greater or return to pre- procedure baseline. The post - procedure orders will be as directed. * If PAR score is less than 8 or not return to pre-procedure baseline then patient will follow Phase I monitoring till PAR is reached for Phase II. The Phase I may be done in procedure room or may call to secure a Phase I area. * If naloxone or flumazenil are used for reversal, hold in Phase I for continued monitoring from when last reversal dose was given for a minimum of 60 minutes or longer pending the nurse and/or physician discretion of patient condition before discharge to Phase II. Please call the Sedation Physician to re-evaluate and complete post-note for discharge to Phase II area. Do NOT discharge from procedure sedation or Phase 1 until post- sedation evaluation note is complete by procedure /sedation MD Sedation Discharge Instructions to be given to the patient at discharge to home.
[2019-05-09] MEDS: carvediloL 12.5 MG TAB PO SCH ×2 (11:37→20:22)
[2019-05-09] MEDS: PANTOprazole 40 MG TAB PO SCH (11:38)
[2019-05-09] MEDS: ASPIRIN 81 MG ECTAB PO SCH (11:38)
[2019-05-09] MEDS ORDERED: FUROSEMIDE 20 MG in SYRINGE 0 ML IV ONE (12:14)
--- NOTE | 2019-05-09 12:56 | Cardiology Progress Note ---
Date of Service May 09, 2019 Assessment & Plan (1) Shortness of breath on exertion: I suspect his dyspnea on exertion is primarily congestive heart failure not atrial fibrillation. The atrial fibrillation may contribute since he has not been feeling quite well for the last month, however the severe change several days prior to admission probably represents fluid overload. He feels better and seems to have lost some weight here in the hospital. He does not have coronary disease to explain it. (2) New onset atrial fibrillation: He presents in atrial fibrillation, but the duration is not clear. He does not feel palpitations so this could have occurred any time, I do not know when the last time it would have been observed is, he does not recall having any type of cardiac testing in the past. It could have started a month ago when he started to feel poorly although it could have occurred much before that and that may be related to his developing a cardiomyopathy. I would treated as though it is relatively recent onset, such as a month, and for that I would use rate control and anticoagulation and anticipate cardioversion in around a month. It is possible also that it is paroxysmal and that will resolve on its own. His rate is reasonably well controlled but he is hypertensive and I am going to go up on his carvedilol, he has not been bradycardic. (3) Cardiomyopathy: He has a cardiomyopathy which includes wall motion abnormalities and this could have been an ischemic cardiomyopathy, however the rate is normal. It is evidently nonischemic. I ordered some blood tests for cardiomyopathy, some have come back but some are still pending. Additionally it could be due to the atrial fibrillation itself or idiopathic although these are diagnoses of exclusion. We need to get him on appropriate heart failure medications for his left ventricular dysfunction. I am going to increase his dose of carvedilol which will be better for his cardiomyopathy. He should also be on an ALEKSANDRA or an ARB or Entresto, his kidney function remains normal (although he received a dye load today) his blood pressure is elevated so I am going to add lisinopril to his regimen. (4) Elevated troponin: His troponin was slightly elevated, evidently from demand ischemia in the absence of coronary. (5) CHF exacerbation: I believe he was in congestive heart failure, I believe that is why he presented and his symptoms were consistent. He has lost about 4 kg over the last several days, perhaps this is an. I do not want to dry him out too much since we are adding an ALEKSANDRA inhibitor any recent catheterization. I have therefore added the diuretic at this time, perhaps he will not need one for perhaps we can get by with just hydrochlorothiazide or a very low-dose furosemide. We may want to start these outpatient if needed rather than starting them here. (6) Mitral regurgitation: He has mild mitral regurgitation on echocardiography. This may be related to his left ventricular dilatation, perhaps with medical therapy this will correct. I would not treat it specifically at this time. Subjective He is feeling well now post catheterization, he has no discomfort he is not having shortness of breath or palpitations. He is at bedrest. Physical Exam Physical Exam: Constitutional: Alert, cooperative and in no distress. HEENT: Unremarkable Neck: No jugular venous distention, carotid pulses are irregular but otherwise normal and equal bilaterally without bruits. Pulmonary: Clear to auscultation bilaterally. Cardiac: Irregular rhythm with no murmur, gallop or rub. Abdomen: Soft, nontender with normal bowel sounds. Extremities: No edema. Distal pulses intact. No bleeding at his right wrist catheterization site. Neurologic: No focal findings. Gait is steady. Skin: No rash, ecchymoses or petechiae. Results & Data Vital Signs (Past 12 Hours) Vital Signs Temp Pulse Pulse Resp BP Pulse Ox 05/09/19 12:05 36.5 C 86 20 160/104 H 95 05/09/19 11:50 36.4 C L 85 20 163/108 H 96 05/09/19 11:35 36.4 C L 85 20 138/101 H 96 05/09/19 11:15 83 18 141/101 H 96 05/09/19 11:09 84 20 120/95 97 05/09/19 11:05 83 20 141/101 H 97 05/09/19 11:00 87 20 152/97 H 96 05/09/19 09:34 90 20 145/119 H 97 05/09/19 06:56 36.5 C 88 18 124/76 96 05/09/19 04:00 36.6 C 77 19 120/77 98 05/09/19 03:45 77 18 93 Laboratory Results Intake and Output 05/08/19 05/09/19 05/09/19 22:59 06:59 14:59 Intake Total 574.733 / 1614.166 411.933 / 1614.166 106.067 / 106.067 Output Total 750 / 3050 600 / 3050 310 / 310 Balance -175.267 / -1435.834 -188.067 / -1435.834 -203.933 / -203.933 Intake: IV 334.733 / 1024.166 411.933 / 1024.166 106.067 / 106.067 HEPARIN SODIUM/DEXTROSE 25,000 334.733 / 1024.166 411.933 / 1024.166 106.067 / 106.067 units In 500 ml @ 1,850 UNITS/ HR 37 mls/hr IV .[id number] [facility] Rx #:[id number] Oral 240 / 590 Output: Urine 750 / 3050 600 / 3050 310 / 310 Other: Other Intake Source NPO Weight 144.1 kg Diagnostic Findings Telemetry: Atrial fibrillation with a reasonably well-controlled heart rate. PG Care Time/CCT Total # of Minutes Spent Total Time Spent with Patient: Total time spent is greater than 50% in coordination of care (as documented) at patient's floor/unit and/or counseling patient: (1) Cardiomyopathy Cardiomyopathy type: unspecified Qualified Code(s): I42.9 - Cardiomyopathy, unspecified
[2019-05-09 12:58] LABS: Lyme Ab IgM w/WB Rflx Negative (Negative)
[2019-05-09 13:00] LABS: Lyme Ab IgG w/WB Rflx Negative (Negative)
[2019-05-09] MEDS: APIXABAN 2.5 MG TAB PO SCH (15:11)
[2019-05-09] MEDS: ACETAMINOPHEN 325 MG TAB PO PRN (20:22)
--- NOTE | 2019-05-09 20:27 | Cardiac Catheterization ---
[facility] Data: Data Analyst Cardiac Status Clinical evaluation leading to the procedure CAD Presenation: Non STEMI Diagnostic Physicians Name: Joseluis Jones MD Closure Device Recommendations: Medical Therapy and/or Counseling Cardiac Cath Procedure Full Procedure Date May 09, 2019 Pre-Procedure Diagnosis Pre-Procedure Diagnosis: CHF AUC Score AUC Score: 8 Post-Procedure Diagnosis Post-Procedure Diagnosis: Normal Coronary Arteries Procedure(s) Performed Procedure(s) Performed: Coronary Angiography and Left Heart Cath Sieve Maker Joseluis Jones MD Ethics Officer(s) none Estimated Blood Loss Estimated Blood Loss: 7cc Medication(s) Medication(s): Fentanyl, Heparin, Lidocaine 1%, Nicardipine, Nitroglycerin and Versed Summary of Findings Indication: NSTEMI, cardiomyopathy Procedure performed via right radial artery Coronary angiography: Left main: The left main was normal in size and caliber and effectively trifurcated into the left circumflex, a large ramus intermedius/high OM and LAD. No significant disease in this vessel Left anterior descending: Left anterior descending was a large transapical vessel which produced a large first diagonal and several smaller diagonal branches. There was evidence of hypertensive arteriopathy but no obstructive d isease in this vessel. Left circumflex: Left circumflex was a nondominant vessel. It produced a very high OM/ramus intermedius branch. There was a smaller second OM vessel and a medium sized ongoing AV groove vessel producing a third OM. There were no significant disease in these vessels. Right coronary artery: The right coronary artery was a large dominant vessel without evidence of obstructive disease. Hemodynamics Rest Ao:: 136/98 mmHg Final Ao: 136/96mmHg LV: 130/16 mmHg LVEDP 20 mmHg Recommendations Recommendations: Medical Therapy and/or Counseling Radiation Exposure (mGy) q Contrast (mls) q Procedural Complication(s) None Disposition PCU I attest to the content of the Intraoperative Record and any orders documented therein. Any exceptions are noted below. [facility] Card Cath Procedure Codes Cardiac Catheterization Procedure 1: Cardiovascular Cath Procedures: 17037 Coronaries and LHC (+/-LV) Moderate Sedation Procedure 1: Sedation/Anesthesia: 38238 Mod Sedation by the same physician;Init15 Min Child Age 5 & Up PG Care Time/CCT Total # of Minutes Spent Total Time Spent with Patient: Total time spent is greater than 50% in coordination of care (as documented) at patient's floor/unit and/or counseling patient:
--- NOTE | 2019-05-09 22:28 | Hospitalist Progress Note ---
Date of Service May 09, 2019 Assessment & Plan (1) New onset atrial fibrillation: TSH WNL, No alcohol. Echocardiogram concerning for CAD with inferior wall severe hypokinesis therefore cardiology consulted (see below) Unclear onset therefore will avoid antiarrhythmics. Rate control with carvedilol. Rate is better controlled. Anticoagulation: continue on heparin IV cardiac cath was negative.. (2) Shortness of breath on exertion: Acute systolic CHF Echo shows decreased LV function. improved with diureses. will hold after cath as to not cause harm to kidney. Continue ASA 81 mg. Lipids and HbA1C with AM labs. Will start statin based upon these. (3) Elevated troponin: Appears relatively stable. Suspect demand-ischemia in setting of increased ventricular rate. No chest pain to suggest ACS. (4) Cardiomyopathy: presumed ischemic at this stage. Consult cardiology. (5) GERD (gastroesophageal reflux disease): Switch Nexium to pantoprazole as per hospital formulary (6) Hypertension: Previously on medication for this but stopped after he lost his insurance. Will treat with metoprolol for now primarily for rate control and monitor. (7) Obstructive sleep apnea: CPAP @ night (8) DVT prophylaxis: iv heparin discontinued Subjective 64 yo male reports feeling better. He has no new complaints, and his shortness of breath improved. Review of Systems Review of Systems: All systems reviewed & are unremarkable except as noted in HPI & below Physical Exam Physical Exam: Constitutional: well developed and + morbidly obese; no acute distress Eyes: + anicteric sclerae; normal pupil size ENMT: external ear and nose normal, oropharynx normal Neck: trachea midline, + short neck and + thick neck Respiratory: normal respiratory effort, lungs clear to auscultation Cardiovascular: Rate/Rhythm: + irregularly irregular Heart Sounds: no murmur Vessels: no JVD Extremities: + pedal edema (1+ to thighs b/l) Gastrointestinal (Abdomen): normal bowel sounds, soft, nontender, no hepatosplenomegaly Musculoskeletal: no cyanosis or clubbing, extremities motor strength 5/5 Skin: no rashes, warm and dry Neurologic: moves all extremities and awake; no focal motor deficits and not confused Speech / Cognition: normal speech Motor/Sensory: no tremor Psychiatric: A+Ox3, euthymic affect Lymphatic: no cervical or axillary lymphadenopathy Results & Data Vital Signs (Past 12 Hours) Vital Signs Temp Pulse Pulse Resp BP Pulse Ox 05/09/19 19:21 36.5 C 85 18 116/49 L 95 05/09/19 15:29 36.2 C L 78 16 151/78 H 93 05/09/19 15:23 93 H 20 94 05/09/19 13:00 36.5 C 89 20 164/90 H 96 05/09/19 12:05 36.5 C 86 20 160/104 H 95 05/09/19 11:50 36.4 C L 85 20 163/108 H 96 05/09/19 11:35 36.4 C L 85 20 138/101 H 96 05/09/19 11:15 83 18 141/101 H 96 05/09/19 11:09 84 20 120/95 97 05/09/19 11:05 83 20 141/101 H 97 05/09/19 11:00 87 20 152/97 H 96 PG Care Time/CCT Total # of Minutes Spent Total Time Spent with Patient: Total time spent is greater than 50% in coordination of care (as documented) at patient's floor/unit and/or counseling patient: (1) GERD (gastroesophageal reflux disease) Esophagitis presence: without esophagitis Qualified Code(s): K21.9 - Gastro-esophageal reflux disease without esophagitis (2) Hypertension Hypertension type: essential hypertension Qualified Code(s): I10 - Essential (primary) hypertension (3) Cardiomyopathy Cardiomyopathy type: unspecified Qualified Code(s): I42.9 - Cardiomyopathy, unspecified
[2019-05-10] MEDS: APIXABAN 2.5 MG TAB PO SCH (05:11)
[2019-05-10 07:55] LABS: Partial Thromboplastin Ratio 1.1; Partial Thromboplastin Time 29.9 Seconds (21.0-31.0)
[2019-05-10] MEDS: carvediloL 12.5 MG TAB PO SCH (08:02)
[2019-05-10] MEDS: PANTOprazole 40 MG TAB PO SCH (08:02)
[2019-05-10] MEDS: ASPIRIN 81 MG ECTAB PO SCH (08:02)
[2019-05-10 08:13] LABS: BUN Creatinine Ratio 15.4 (10-20); Calcium 9.3 mg/dl (8.5-10.1); Creatinine Clr Calc Pharmacy 81.6 ml/min; Est GFR (African American) 65.9; Est GFR (Non-African American) 56.9; Potassium 4.1 mmol/L (3.5-5.1)
[2019-05-10] MEDS ORDERED: carvediloL 3.125 MG TAB PO ONE (11:24)
--- NOTE | 2019-05-10 11:26 | Cardiology Progress Note ---
Date of Service May 10, 2019 Assessment & Plan (1) Shortness of breath on exertion: I suspect his dyspnea on exertion on presentation was primarily congestive heart failure not atrial fibrillation. The atrial fibrillation may contribute since he has not been feeling well for the last month, however the severe change several days prior to admission probably represents fluid overload. He feels better and has lost some weight here in the hospital. He does not have coronary disease to explain his symptoms. (2) New onset atrial fibrillation: He presents in atrial fibrillation, but the duration is not clear. He does not feel palpitations so this could have occurred any time, I do not know when the last time it would have been observed is, he does not recall having any type of cardiac testing in the past. It could have started a month ago when he started to feel poorly although it could have occurred much before that and that may be related to his developing a cardiomyopathy. I would treat it as though it is relatively recent onset, such as a month, and for that I would use rate control and anticoagulation and anticipate cardioversion in around a month. It is possible also that it is paroxysmal and that it will resolve on its own. His rate is reasonably well controlled but I am going to go up on his carvedilol, he has not been bradycardic. (3) Cardiomyopathy: He has a cardiomyopathy which includes wall motion abnormalities and this could have been an ischemic cardiomyopathy, however his catheterization is normal. It is evidently nonischemic. I ordered some blood tests for cardiomyopathy, some have come back but some are still pending, so far no specific diagnosis. Additionally it could be due to the atrial fibrillation itself or idiopathic although these are diagnoses of exclusion. We need to get him on appropriate heart failure medications for his left ventricular dysfunction. I am going to increase his dose of carvedilol which will be better for his cardiomyopathy. He is quite large and probably should be on a higher dose than carvedilol 25 twice a day but I do not want to go higher than that during his hospitalization. He should also be on an ALEKSANDRA or an ARB or Entresto, his kidney function remains normal (although it has increased within the normal range as of this morning) his blood pressure has been elevated but not today so I am going to leave his lisinopril at the current dose. (4) Elevated troponin: His troponin was slightly elevated, evidently from demand ischemia in the absence of coronary artery disease. (5) CHF exacerbation: I believe he was in congestive heart failure, I believe that is why he presented and his symptoms were consistent. He has lost about 4 kg over the last several days, perhaps this is enough. I do not want to dry him out too much since we are adding an ALEKSANDRA inhibitor and he had a recent catheterization. I have therefore not added a diuretic at this time, perhaps he will not need one or perhaps we can get by with just hydrochlorothiazide or a very low-dose prn furosemide. We may want to start these outpatient if needed rather than starting them here. We will arrange for him to be seen in our heart failure clinic for additional medical titration and management. (6) Mitral regurgitation: He has mild mitral regurgitation on echocardiography. This may be related to his left ventricular dilatation, perhaps with medical therapy this will correct. I would not treat it specifically at this time. We will be getting a follow-up echocardiogram but I would like to wait until we correct his atrial fibrillation which may take about a month of anticoagulation. Subjective He is feeling well today, he has no discomfort at his catheterization site in his right wrist. He has been ambulating in the room without difficulty. He has no awareness of his atrial arrhythmia, although he did not prior to admission either. He feels that his shortness of breath is improved although he has not tried to exert himself substantially here. He is tolerating his medications well including the Eliquis. He has no lightheadedness or dizziness. Physical Exam Physical Exam: Constitutional: Alert, cooperative and in no distress. HEENT: Unremarkable Neck: No jugular venous distention, carotid pulses are irregular but otherwise normal and equal bilaterally without bruits. Pulmonary: Clear to auscultation bilaterally. Cardiac: Irregular rhythm with no murmur, gallop or rub. Abdomen: Soft, nontender with normal bowel sounds. Extremities: No edema. Distal pulses intact. No bleeding at his right wrist catheterization site. Neurologic: No focal findings. Gait is steady. Skin: No rash, ecchymoses or petechiae. Results & Data Vital Signs (Past 12 Hours) Vital Signs Temp Pulse Pulse Pulse Resp BP Pulse Ox 05/10/19 07:00 36.4 C L 76 18 122/84 97 05/10/19 03:33 36.4 C L 78 19 129/72 97 05/10/19 03:10 62 16 97 05/10/19 00:43 64 18 97 05/09/19 23:42 84 05/09/19 23:38 36.5 C 88 20 104/67 96 Laboratory Results Coagulation 05/10/19 Range/Units 07:29 APTT 29.9 (21.0-31.0) Seconds Comprehensive Metabolic Panel 05/10/19 Range/Units 07:29 Sodium 137 (136-145) mmol/L Potassium 4.1 (3.5-5.1) mmol/L Chloride 103 (98-107) mmol/L Carbon Dioxide 31 (21-32) mmol/L BUN 21 H (7-18) mg/dl Creatinine 1.33 (0.6-1.4) mg/dl Glucose 102 H (70-99) mg/dl Calcium 9.3 (8.5-10.1) mg/dl Intake and Output 05/09/19 05/10/19 05/10/19 22:59 06:59 14:59 Intake Total 1090 / 1696.067 500 / 1696.067 Output Total 500 / 1310 Balance 590 / 386.067 500 / 386.067 Intake: Oral 1090 / 1590 500 / 1590 Output: Urine 500 / 1310 Other: Weight 144.4 kg PG Care Time/CCT Total # of Minutes Spent Total Time Spent with Patient: Total time spent is greater than 50% in coordination of care (as documented) at patient's floor/unit and/or counseling patient: (1) Cardiomyopathy Cardiomyopathy type: unspecified Qualified Code(s): I42.9 - Cardiomyopathy, unspecified
[2019-05-10] MEDS ORDERED: carvediloL 25 MG TAB PO SCH (21:00)
[2019-05-10] MEDS ORDERED: APIXABAN 5 MG TABLET PO SCH (21:00)
[2019-05-11 05:05] LABS: Albumin 3.3 g/dL (3.8-4.8); Alpha 1 Globulin 0.3 g/dL (0.2-0.3); Alpha 2 Globulin 0.7 g/dL (0.5-0.9); Beta-1-Globulin 0.4 g/dL (0.4-0.6); Beta-2-Globulin 0.3 g/dL (0.2-0.5); Gamma Globulin 0.6 g/dL (0.8-1.7); Monoclonal Protein Band 1 DNR g/dL (NONE DETECTED); Monoclonal Protein Band 2 DNR g/dL (NONE DETECTED); Monoclonal Protein Band 3 DNR g/dL (NONE DETECTED); Total Protein 5.7 g/dL (6.1-8.1)
[2019-05-11 05:09] LABS: Creatinine Ur 113 mg/dL (20-320); Protein, Urine Random 6 mg/dL (5-25); Urine Abnormal Protein Band 1 DNR mg/dL (NONE DETECTED); Urine Abnormal Protein Band 2 DNR mg/dL (NONE DETECTED); Urine Abnormal Protein Band 3 DNR mg/dL (NONE DETECTED); Urine Protein/Creatinine Ratio 0.053 (0.022-0.128)
--- NOTE | 2019-05-16 00:15 | Discharge Summary ---
Date of Service May 10, 2019 Admission HPI Per Admitting Provider Loco Robin is a 64 year old male patient unassigned who presented to the ER with shortness of breath on exertion getting progressively worse over the last 2 weeks. No previous known coronary artery or thyroid. He denies any alcohol use. He denies any chest pain, palpitations, leg swelling, claudication. No cough, fevers or chills. No significant change in his symptoms since coming to the ER. He has diagnosed obstructive sleep apnea and is complaint with CPAP. ER workup included labs with unremarkable CBC, total bilirubin 1.2 but otherwise unremarkable CMP. Troponin 0.047. EKG showed atrial fibrillation. CXR - cardiomegaly without acute cardiopulmonary disease He was given 1L bolus of NSS and started on a standard heparin drip with bolus. Principal Diagnosis new onset a. fib Discharge Exam Constitutional: well developed and + morbidly obese; no acute distress Eyes: + anicteric sclerae; normal pupil size ENMT: external ear and nose normal, oropharynx normal Neck: trachea midline, + short neck and + thick neck Respiratory: normal respiratory effort, lungs clear to auscultation Cardiovascular: Rate/Rhythm: + irregularly irregular, rate controlled Heart Sounds: no murmur Vessels: no JVD Extremities: + pedal edema (1+ to thighs b/l) Gastrointestinal (Abdomen): normal bowel sounds, soft, nontender, no hepatosplenomegaly Musculoskeletal: no cyanosis or clubbing, extremities motor strength 5/5 Skin: no rashes, warm and dry Neurologic: moves all extremities and awake; no focal motor deficits and not confused Speech / Cognition: normal speech Motor/Sensory: no tremor Psychiatric: A+Ox3, euthymic affect Lymphatic: no cervical or axillary lymphadenopathy Discharge Data Allergies Allergy/AdvReac Type Severity Reaction Status Date / Time shrimp Allergy Swelling Unverified 05/07/19 12:10 of Lip/Tongue/Throat Consultations 05/07/19 12:31 ED Decision to Admit Stat 05/07/19 17:09 Consult Cardiology Routine 05/10/19 10:35 Consult [facility] college intern Routine Procedures Performed Operation Date: 05/09/19 09:30 Actual Procedures s Cineradiography w/Routine Exam - Madan oJnes MD p Cath, Left with Cors and Vent - Madan Jones MD Ordered Studies 05/09/19 06:57 CL Cath Imgs for PACS use only Routine 05/09/19 06:59 CL Cath Imgs for PACS use only Routine Hospital Course (1) New onset atrial fibrillation: TSH WNL, No alcohol. Echocardiogram concerning for CAD with inferior wall severe hypokinesis therefore cardiology consulted (see below) Unclear onset therefore will avoid antiarrhythmics. Rate control with carvedilol. Rate is better controlled. Anticoagulation: discharge on eliquis (heparin in hospital) cardiac cath was negative.. (2) Shortness of breath on exertion: Acute systolic CHF Echo shows decreased LV function. improved with diureses. will hold after cath as to not cause harm to kidney. Continue ASA 81 mg. Lipids and HbA1C with AM labs. Will start statin based upon these. (3) Elevated troponin: Appears relatively stable. Suspect demand-ischemia in setting of increased ventricular rate. No chest pain to suggest ACS. (4) Cardiomyopathy: presumed ischemic at this stage. Consult cardiology. (5) GERD (gastroesophageal reflux disease): Switch Nexium to pantoprazole as per hospital formulary (6) Hypertension: Previously on medication for this but stopped after he lost his insurance. Will treat with metoprolol for now primarily for rate control and monitor. (7) Obstructive sleep apnea: CPAP @ night (8) DVT prophylaxis: iv heparin discontinued Total Time Total Time Spent Total Time Spent (In Minutes): 32 Total Time Includes: Examination of the Patient, Discharge Planning and Medication Reconciliation Discharge Plan Discharge Items Patient Disposition: Home - Self-Care Reason For Visit: NEW ONSET ATRIAL FIBRILLATION Discharge Diagnosis: New onset atrial fibrillation Activity: Resume your previous activity Non-emergency contact: Primary Care Provider Call non-emergency contact if: you have any medication questions Follow-up/Referrals: Mirian Espinoza PA-C [Physician [employer]] - 05/16/19 2:00 pm (Congestive Heart Failure Program Appointment Information Early follow up is essential to managing your heart failure. An appointment has been scheduled for you with the [facility] Heart Failure Program within 7 days of discharge. Anticipate this visit to be 30-60 minutes long. Please expect a consumer loan manager phone call from one of our nurses approximately 48 hours from discharge. They will also be placing an order for lab work to be completed 1-2 days prior to your heart failure follow up appointment. Please be sure to have this done so we can go over the results when you come in. Office Location The cardiology office building is located in front of the hospital at [address] Bring the following with you to your follow-up doctor appointments: Please bring your daily weight log any discharge paperwork all of your medication bottles with you to this visit. ) PCP,NO [Primary Care Provider] - Diet: Heart Healthy Addtl Attending Provider Instructions: Call 911 and go to the Emergency Room if: * You have tightness or pain in your chest that does not go away with rest or Nitroglycerin * You are very short of breath even with rest Call your doctor if any of the following symptoms or problems start or get worse: * Shortness of breath or difficulty breathing * Wake up at night short of breath * Chest pain * Cough * Swelling of your hands, fee, or legs * More fatigued or tired with your normal activity * Palpitations - sudden fast heart beats WEIGHT * Weigh yourself every morning after using the bathroom. * Use the same scale. * Wear the same amount of clothing. * Write your weight down on your chart. * Call your doctor if you gain more than 2-3 pounds in 1-2 days. MEDICATIONS * Use this discharge instruction sheet for instructions. * Take your medications at the time your doctor ordered. * Do not skip a dose of your medicines. * If you miss a dose of medicine, take as soon as possible, but DO NOT DOUBLE A DOSE. * Read your medicine information when you get home. * Know all of the side effects of your medicine. * Call your doctor's office if you have any side effects. * Be sure all of your doctors know what medicine and herbs you take (including cold, flu, and herbal medicine). * Pain Medicine: If you do not get relief from your pain, please call your doctor for help. Take the following with you to your follow-up doctor appointments: * Weight Chart * Medication List * List of questions Do not drink excessive alcohol, beer or wine. Pending Studies at Discharge: No Stand-Alone Forms: [employer], Work/School Release (Inpt), Smoking Cessation Medications and DC Order Prescriptions: New carvedilol 12.5 mg Tablet 18.75 mg PO BID Qty: 60 RF: 0 aspirin [Ecotrin Low Strength] 81 mg Tablet,Delayed Release (Dr/Ec) 81 mg PO QAM Qty: 30 RF: 0 Eliquis 2.5 mg Tablet 5 mg PO BID Qty: 60 RF: 0 lisinopril 2.5 mg Tablet 2.5 mg PO QAM Qty: 30 RF: 0 Continued esomeprazole magnesium [Nexium] 20 mg Capsule,Delayed Release(Dr/Ec) 20 mg PO DAILY RF: 0 Discharge Orders: Discharge Order (Routine); Ordered 05/10/19 Ordered By: Aaron Snyder/Other Patient Handouts: A1C Admission Data Admit Date/Time: 05/07/19 13:25 Attending Provider: Aaron Sy Admit Provider: Victoriano Buenrostro Primary Care Provider: PCP,NO Other Providers: Malik Lafleur Other Interventions: Discharge Summary Assessment (RN) Last Done: 05/10/19 11:54 DC Date/Time DO NOT enter until pt leaves facility: 05/10/19 13:48
--- NOTE | 2019-05-18 07:07 | Coding Query ---
CODING QUERY To promote full compliance with coding requirements relating to patient care, provider participation is requested in all cases of arch pad cementer uncertainty. Please assist us with the question(s) below: Coding Question(s): 1. The Discharge Summary documents Acute Systolic CHF and the Cardiology Progress Note on 05/10 documents as CHF exacerbation (Acute on Chronic). Due to the conflicting documentation, please clarify below, in your clinical opinion. ( x) Acute Systolic CHF ( ) CHF Exacerbation (Acute on Chronic Systolic CHF) ( ) Other: Please Specify 2. The Discharge Summary documents regarding Cardiomyopathy that it is presumed ischemic, however Cardiology Progress Note on 05/10 documents regarding Cardiomyopathy that it is evidently nonischemic. Due to the conflicting documentation, please clarify below, in your clinical opinion. ( ) Ischemic Cardiomyopathy ( x ) Nonischemic Cardiomyopathy ( ) Other: Please Specify Physician's Response(s): Thank you Chinyere Nieto Principal Diagnosis: "that condition established after study, to be chiefly responsible for occasioning the admission of the patient to the hospital for care." Co-Existing Principal Diagnosis: "when two or more diagnoses equally meet the criteria for principal diagnosis as determined by the circumstances of admission, diagnostic work up, and/or therapy provided, and the Alphabetic Index, Tabular List, or another coding guideline does not provide sequencing direction, any one of the diagnoses may be sequenced first." "When the physician has documented what appears to be a current diagnosis in the body of the record, but has not included the diagnosis in the final diagnostic statement, the physician should be asked whether the diagnosis should be added." (Source Coding [facility] 2 QTR90. p3-4) ELDA
== END 2019-05-10 13:48 | disposition home or self-care (01) | DRG 286 ==
LOC: ED 10:27 → 2S 13:25 → SUATTDRO 13:25 → 2S 14:30

== ENCOUNTER 2019-10-14 03:38 | Observation (INO) ==
[2019-10-14] MEDS ORDERED: SODIUM CHLORIDE 0.9% 1000ML 500 ML IV ONE (03:54)
[2019-10-14] MEDS ORDERED: GLUCAGON 1 ML IV ONE (03:54)
[2019-10-14] MEDS ORDERED: LORazepam 1 MG/2 ML VIAL IV STA (03:54)
--- NOTE | 2019-10-14 03:59 | Emergency Department Note ---
Impression & Plan Food impaction of esophagus, Atrial fibrillation with rapid ventricular response ED Provider Note Name: MARYAM SEALS Age: 64 Sex: M Arrives Via: Walk-In Informant: Patient ED Provider: Tito Castellon MD Chief Complaint: Difficulty Swallowing Impression: Food Impaction of esophagus Atrial Fibrillation with RVR Medical Decision Makin yr old male with history of Afib on Eliquis, CHF, Cardiomyopathy, HTN, GERD, DONNA. Arrives with inability to swallow secretions after food bolus 2 days ago that lasted a day before passing but still unable to swallow. He is tachy and dehydrated on arrival consistent with inability to take his medications and de hydration from not eating. This fortunately means he hasn't had his Eliquis in last 2 days either though. Labs with minor renal insufficiency from baseline consistent with dehydration. Given IV fluids, Lopressor IV x 2 and HR improving. Ativan and Glucagon did seem to improve swallowing a bit though more seems relaxed. Given continued symptoms, and prolonged bolus discussed with GI who agree with plan for scope later today. As it will be some time until scope given multiple OR cases ahead of him and fact that he has several medical issues discussed with medical team for further management while awaiting Endoscopy. Patient comfortable thoughout. Prior Medical Record and Triage/Nursing Notes reviewed by Me Additional history obtained from Chart Differentials:Foob bolus, esophageal stricture, esophageal rupture, esophagitis, electroly dysturbance amongst other pathologies. Vital Signs: reviewed and remarkable for tachy, HTN Interventions: saline lock, IV lfuids, lopressor 5mg IV x 2, glucadon 1mg IV, ativan 1mg IV Labs:Reviewed and remarkable for mild bump cr Imaging:X ray results are stated below per my interpretation: Chest: 1 view: No infiltrate, no effusion, normal cardiac border. EKG:Per My Interpretation: Indication Tachycardia: Afib RVR 129 bpm, qtc 495. No Ischemia. Compared to EKG 06/22/19 he is now in Afib when in NSR at that time Cardiac/Tele Monitoring: Cardiac Monitoring: An Order was placed for continuous cardiac monitoring. The monitor shows a rate of 120 with an afib rhythm. Consults:Dr Mtz Gastro, Dr Silveira hospitalist Plan: Disposition:Hospitalization. Referred to: PCP Condition: Good Blood pressure:Elevated - Referred to Hospitalist - [place] to be Situational Prescriptions:none PDMP: na History of Present Illness:64 / M arrives for evaluation of difficulty swallowing. Patient eating chicken 36 hours ago and noted it got stuck in esophagus. After roughly 20 hours it finally felt like it passed, however he is still unable to swallow even his saliva. Notes for the last day/night he has been continuously spitting up his saliva. Attempted to make himself vomit wi thout improvement. Notes mild mid chest pain similar to when chicken got stuck. Admits this happens regularly but never lasts this long. He has been unable to take any of his medications over the last 2 days. Denies abdominal pain, back pain, diarrhea, urinary symptoms, shortness of breath, fevers, chills, nor other symptoms. Previous Endoscopy several years ago with diagnosis of GERD. ROS: See above HPI for pertinent positives & negatives. A total of 10 systems reviewed and were otherwise negative. Past Medical History:GERD, HTN, DONNA, Cardiomyopathy, CHF, Afib Past Surgical History:See Below Family History:See Below Social History:See Below Home Medications:See Below Allergies:shrimp Vitals:Blood Pressure: 231/108, Pulse 115, RR 18, T 36.9C, O2 97% on RA Physical Exam: GENERAL: Patient is uncomfortable appearing and in moderate distress. EYES: No scleral icterus, unremarkable pupils. ENT: Mucous membranes moist, no nasal congestion. NECK: No masses appreciated, nomeningismus, trachea is midline. RESPIRATORY: No dyspnea. Clear to auscultation and equal bilaterally. No wheeze, no rhonchi. CARDIOVASCULAR: Tachy, Irregular.No murmurs, rubs, gallops appreciated. GASTROINTESTINAL: Abdomen soft, non-tender, no peritonitis.Bowel sounds positive.No masses appreciated. BACK: No midline tenderness, no CVA tenderness EXTREMITIES: Normal motion all extremities, no cyanosis, no edema. NEUROLOGIC: Alert and oriented, no acute motor or sensory deficits, no focal weakness, cranial nerves grossly intact. SKIN: No rash, no jaundice, no diaphoresis. PSYCH: Appropriate GCS: 15 ED Course: Times/Reassessments: Mild improvement though still with spitting periodically, HR improving Tito Castellon MD Past Med/Surg History Medical History Atrial fibrillation Cardiomyopathy Chronic systolic congestive heart failure Dysphagia nexium for dysphagia. denies acid reflux Hiatal hernia Hypertension New onset atrial fibrillation (Inactive) Obstructive sleep apnea cpap Osteoarthritis Shortness of breath on exertion Surgical History H/O right inguinal hernia repair History of cardiac cath 04/2019 [facility]. 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 Other Information That Helps Us Care for You: No Feels Safe at Home: Yes Safety Concerns: Feels Safe At This Time Smoking Status: Never smoker Do You Dip or Chew Tobacco: No ; Second Hand Exposure: No ; Tobacco Cessation Education Requested by Patient: No Hx Alcohol Use: No Hx Substance Use: No Allergies Allergies Allergy/AdvReac Type Severity Reaction Status Date / Time shrimp Allergy Severe swelling Verified 10/14/19 04:23 face, lips Home Meds Home Medications Medication Instructions Recorded Confirmed esomeprazole magnesium [Nexium] 20 mg PO DAILY 05/07/19 10/14/19 Previous Rx's Medication Instructions Recorded apixaban 5 mg tablet 5 mg PO BID #180 tab 08/15/19 sacubitril 97 mg-valsartan 103 mg 1 tab PO BID #180 tab 08/15/19 tablet furosemide 40 mg tablet 40 mg PO DAILY PRN #30 tab 09/27/19 carvedilol 25 mg tablet 37.5 mg PO BID #270 tab 10/10/19 Results & Data (ED) Vital Signs Vital Signs - 24 hr 10/14/19 03:45 10/14/19 04:20 10/14/19 04:36 Temperature 36.9 C Temperature Source Oral Pulse Rate 115 H 120 H Pulse Rate [Apical] 99 H Respiratory Rate 18 18 Respiratory Effort / Characteristics Non-Labored Spontaneous Respiratory Depth Normal Respiratory Pattern Regular Blood Pressure 231/108 H 122/89 Blood Pressure [Right Arm] 144/97 H Blood Pressure Mean 149 Blood Pressure Mean [Right Arm] 112 Blood Pressure Position Sitting Pulse Oximetry 97 98 Oxygen Delivery Method Room Air Room Air Sepsis Recent Fever Within 48 Hours No Sepsis Action Taken by Nursing No Action Required 10/14/19 04:59 10/14/19 05:00 10/14/19 05:15 Temperature Temperature Source Pulse Rate 108 H Pulse Rate [Apical] 108 H 91 H Respiratory Rate 18 18 Respiratory Effort / Characteristics Respiratory Depth Respiratory Pattern Blood Pressure 132/92 Blood Pressure [Right Arm] 132/92 132/96 Blood Pressure Mean Blood Pressure Mean [Right Arm] 105 108 Blood Pressure Position Pulse Oximetry 96 98 Oxygen Delivery Method Room Air Room Air Sepsis Recent Fever Within 48 Hours Sepsis Action Taken by Nursing Laboratory Data Result diagrams: 10/14/19 04:05 10/14/19 04:05 Lab Results 10/14/19 10/14/19 10/14/19 Range/Units 04:05 04:05 04:05 WBC 13.74 H (4.8-10.8) K/uL RBC 5.62 (4.7-6.1) M/uL Hgb 16.5 (14.0-18.0) g/dL Hct 48.7 (42-52) % MCV 86.7 (80-100) fL MCH 29.4 (25-34) pg MCHC 33.9 (32-36) g/dL RDW Std Deviation 47.6 H (36.4-46.3) fL RDW Coeff of Robert 14.9 H (11.5-14.5) % Plt Count 220 (130-400) K/uL MPV 10.6 H (7.4-10.4) fL Immature Gran % (Auto) 0.2 % Neut % (Auto) 76.4 % Lymph % (Auto) 12.9 % Jewell % (Auto) 9.5 % Eos % (Auto) 0.9 % Baso % (Auto) 0.1 % Immature Gran # (Auto) 0.03 H (0.00-0.02) K/uL Neut # (Auto) 10.48 H (1.4-6.5) K/uL Lymph # (Auto) 1.77 (1.2-3.4) K/uL Jewell # (Auto) 1.31 H (0.11-0.59) K/uL Eos # (Auto) 0.13 (0-0.5) K/uL Baso # (Auto) 0.02 (0-0.2) K/uL PT 11.7 (9.0-12.0) Seconds INR 1.1 (0.9-1.1) APTT 31.0 (21.0-31.0) Seconds PTT Ratio 1.1 Sodium 145 (136-145) mmol/L Potassium 3.8 (3.5-5.1) mmol/L Chloride 110 H (98-107) mmol/L Carbon Dioxide 26 (21-32) mmol/L Anion Gap 9.0 (3-11) BUN 27 H (7-18) mg/dl Creatinine 1.46 H (0.6-1.4) mg/dl Est Cr Clr Drug Dosing 71.8 ml/min Est GFR ( Amer) 58.9 Est GFR (Non-Af Amer) 50.8 BUN/Creatinine Ratio 18.7 (10-20) Glucose 123 H (70-99) mg/dl Calcium 9.4 (8.5-10.1) mg/dl Troponin I < 0.015 (0-0.045) ng/ml Administered Medications Pantoprazole Sodium 40 mg/ (Syringe) 10 mls @ 5 mls/min IV BID BARRY Stop: 11/13/19 08:59 Last Admin: 10/14/19 20:50 Dose: 5 mls/min Documented by: [id number] Admin: 10/14/19 08:08 Dose: 5 mls/min Documented by: [id number] Discontinued Medications Glucagon (Glucagen) 1 mls @ 1 mls/min IV ONE ONE Stop: 10/14/19 03:55 Last Admin: 10/14/19 04:19 Dose: 1 mls/min Documented by: [id number] Lorazepam (Ativan) 1 mg in 2 mls @ 2 mls/min IV NOW STA Stop: 10/14/19 03:55 Last Admin: 10/14/19 04:18 Dose: 2 mls/min Documented by: [id number] Sodium Chloride (Nss 1000ml) 500 mls @ 999 mls/hr IV .Q31M ONE Stop: 10/14/19 04:24 Last Infusion: 10/14/19 04:49 Dose: 0 mls/hr Documented by: [id number] Admin: 10/14/19 04:16 Dose: 999 mls/hr Documented by: [id number] Sodium Chloride (Nss) 500 mls @ 80 mls/hr IV .Q6H15M BARRY Stop: 10/14/19 13:28 Last Infusion: 10/14/19 17:36 Dose: 0 mls/hr Documented by: [id number] Infusion: 10/14/19 14:40 Dose: 80 mls/hr Documented by: [id number] Infusion: 10/14/19 11:39 Dose: 0 mls/hr Documented by: [id number] Admin: 10/14/19 08:08 Dose: 80 mls/hr Documented by: [id number] Metoprolol Tartrate (Lopressor) 5 mg IV NOW STA Stop: 10/14/19 04:11 Last Admin: 10/14/19 04:20 Dose: 5 mg Documented by: [id number] Metoprolol Tartrate (Lopressor) 5 mg IV NOW STA Stop: 10/14/19 04:35 Last Admin: 10/14/19 05:00 Dose: 5 mg Documented by: [id number] Metoprolol Tartrate (Lopressor) 5 mg IV NOW STA Stop: 10/14/19 11:30 Last Admin: 10/14/19 11:35 Dose: 5 mg Documented by: [id number] Metoprolol Tartrate (Lopressor) Confirm Administered Dose 5 mg IV .STK-MED ONE Stop: 10/14/19 11:35 Last Admin: 10/14/19 11:39 Dose: Not Given Documented by: [id number] Discharge Plan Visit Data *Final* Discharge Date/Time: 10/14/19 06:20 Chief Complaint: Food Bolus Stated Complaint: UNABLE TO KEEP ANYTHING IN ED Provider: Tito Castellon Discharge Problem: Food impaction of esophagus, Atrial fibrillation with rapid ventricular response Patient Disposition: Admitted As Inpatient Discharge Instructions Interventions: ED Discharge Assessment Last Done: 10/14/19 06:20 Discharge Problem: Food impaction of esophagus Qualifiers: Encounter type: initial encounter Qualified Code(s): T18.128A - Food in esophagus causing other injury, initial encounter
[2019-10-14] MEDS ORDERED: METOPROLOL TARTRATE 1 MG/ML VIAL IV STA ×2 (04:10→11:29)
[2019-10-14 04:16] LABS: Basophils # (auto) 0.02 K/uL (0-0.2); Basophils % (auto) 0.1 %; Eosinophils # (auto) 0.13 K/uL (0-0.5); Eosinophils % (auto) 0.9 %; Hematocrit (blood only) 48.7 % (42-52); Hemoglobin 16.5 g/dL (14.0-18.0); Immature Granulocytes # (auto) 0.03 K/uL (0.00-0.02); Immature Granulocytes % (auto) 0.2 %; Lymphocytes # (auto) 1.77 K/uL (1.2-3.4); Lymphocytes % (auto) 12.9 %; Mean Corpuscular Hemoglobin 29.4 pg (25-34); Mean Corpuscular Hgb Conc 33.9 g/dL (32-36); Mean Corpuscular Volume 86.7 fL (80-100); Mean Platelet Volume 10.6 fL (7.4-10.4); Monocytes # (auto) 1.31 K/uL (0.11-0.59); Monocytes % (auto) 9.5 %; Neutrophils # (auto) 10.48 K/uL (1.4-6.5); Neutrophils % (auto) 76.4 %; Platelet Count 220 K/uL (130-400); RDW Coefficient of Variation 14.9 % (11.5-14.5); RDW Standard Deviation 47.6 fL (36.4-46.3); Red Blood Count 5.62 M/uL (4.7-6.1); White Blood Count 13.74 K/uL (4.8-10.8)
[2019-10-14 04:34] LABS: BUN Creatinine Ratio 18.7 (10-20); Blood Urea Nitrogen 27 mg/dl (7-18); Calcium 9.4 mg/dl (8.5-10.1); Carbon Dioxide 26 mmol/L (21-32); Chloride 110 mmol/L (98-107); Creatinine Clr Calc Pharmacy 71.8 ml/min; Est GFR (African American) 58.9; Est GFR (Non-African American) 50.8; Glucose 123 mg/dl (70-99); Potassium 3.8 mmol/L (3.5-5.1); Sodium 145 mmol/L (136-145)
[2019-10-14 04:38] LABS: Troponin I < 0.015 ng/ml (0-0.045)
[2019-10-14 04:40] LABS: INR 1.1 (0.9-1.1); Partial Thromboplastin Ratio 1.1; Prothrombin Time 11.7 Seconds (9.0-12.0)
[2019-10-14] MEDS: METOPROLOL TARTRATE 1 MG/ML VIAL IV STA ×2 (04:41→05:00)
--- NOTE | 2019-10-14 06:07 | History & Physical Report ---
Date of Service October 14, 2019 Assessment & Plan (1) Food impaction of esophagus: Pt is a 64yo with PMHx of GERD, atrial fibrillation on Eliquis, nonischemic cardiomyopathy, HFrEF and HTN who presents with the complaint of chicken being stuck in his esophagus. Food stuck in UGI tract -Pt states he has chicken stuck in his lower esophagus for the last 2 days -Unable to eat or take medications, difficulty swallowing -This has been happening for the last 10 years but never this long to resolve -Chest XR ordered by ED- read pending -Trops negative -CT chest w/o contrast ordered -consult placed to GI, NPO for possible procedure -consider barium swallow and speech consult for further evaluation of chronic dysphagia -PRN tylenol ordered for pain, consider GI cocktail for pain as needed as well. TAURUS -Cr elevated to 1.46 though GFR within normal limits in pt with BMI>41 -Baseline of 1.13 in June 2019 -Received 500ml bolus in ED -started on NSS 500ml @80-stop after 1 bag given pt's Hx of CHF (see below) Atrial fibrillation -currently rate controlled -holding home PO carvedilol 37.5mg BID as pt NPO and having difficulty swallowing -holding home Eliquis 5mg BID due to procedure and as above HFrEF -EF of 40-50% -holding home PRN Lasix as pt NPO and acute TAURUS above -holding home Entresto as pt currently NPO for procedure GERD -holding home PO nexium -ordered IV Protonix BID HTN -currently well controlled -holding PO home carvedilol 37.5mg BID FEN/GI: NPO for possible procedure, NSS@80mls-stop after 1 bag CODE STATUS: Full code DVT prophylaxis: holding Eliquis for possible procedure Dispo: med/surg with tele History of Present Illness Primary Care Provider: Kishan Wyman Pt is a 64yo with PMHx of GERD, atrial fibrillation on Eliquis, nonischemic cardiomyopathy, HFrEF and HTN who presents with the complaint of chicken being stuck in his esophagus. States this is a regular event for him for the last 10 years but it has never lasted 2 days like it is currently. Does not believe he was ever worked up with a barium swallow. States he almost had an endoscopy for the same about 2 years prior but it resolved before the procedure. Describes the sensation in his chest as burning and sharp, feels like it had lessened yesterday. Had a bowl of potato salad before the chicken on Tuesday about 11AM which went down ok. Has a Hx of GERD but does not feel like this is similar in sensation. Has felt significant relief with Ativan given by ED for pain. Allergies Allergy/AdvReac Type Severity Reaction Status Date / Time shrimp Allergy Severe swelling Verified 10/14/19 04:23 face, lips Home Medications Home Medications Medication Instructions Recorded Confirmed Type esomeprazole magnesium [Nexium] 20 mg PO DAILY 05/07/19 10/14/19 History apixaban 5 mg tablet 5 mg PO BID #180 tab 08/15/19 10/14/19 Rx sacubitril 97 mg-valsartan 103 mg 1 tab PO BID #180 tab 08/15/19 10/14/19 Rx tablet furosemide 40 mg tablet 40 mg PO DAILY PRN #30 tab 09/27/19 10/14/19 Rx carvedilol 25 mg tablet 37.5 mg PO BID #270 tab 10/10/19 10/14/19 Rx Past Med/Surg History Medical History Atrial fibrillation Cardiomyopathy Chronic systolic congestive heart failure Dysphagia nexium for dysphagia. denies acid reflux Hiatal hernia Hypertension New onset atrial fibrillation (Inactive) Obstructive sleep apnea cpap Osteoarthritis Shortness of breath on exertion Surgical History H/O right inguinal hernia repair History of cardiac cath 04/2019 [facility]. no stents History of esophagogastroduodenoscopy (EGD) History of hip surgery left hip relocation and repair as a child History of tonsillectomy Family History Sister Family hx of colon cancer Social History Preferred Language: Amharic Communication Ability: Effective Promotions Executive Producer Required: No Beliefs That Will Affect Care: None Current Living Situation: Alone Current Living Situation Comment: caring for 92 year old father who is bedridden currently. Other Information That Helps Us Care for You: No Feels Safe at Home: Yes Safety Concerns: Feels Safe At This Time Smoking Status: Never smoker Do You Dip or Chew Tobacco: No ; Second Hand Exposure: No ; Tobacco Cessation Education Requested by Patient: No Hx Alcohol Use: No Hx Substance Use: No Review of Systems Constitutional: + anorexia; no fever, no chills and no fatigue Eyes: no worsening vision Ear, Nose, Mouth, Throat: + dysphagia; no nasal congestion and no sore throat Respiratory: no cough, no chest congestion and no dyspnea Cardiovascular: + chest pain, + dyspnea and + edema; no palpitations Gastrointestinal: + dysphagia; no abdominal pain, no nausea, no vomiting, no constipation and no diarrhea/loose stools Integumentary: no rash Neurologic: no tingling, no numbness, no headache(s) and no confusion Physical Exam Physical Exam: General: Alert, oriented. No acute distress, sitting up in bed Skin: No noted rashes or bruises Psych: Appropriate mood and affect Neuro: No gross deficits HEENT: NC/AT Chest: Nontender to palpation. CV: Irregular rate and rhythm, distant heart sounds due to body habitus Resp: Breath sounds clear bilaterally, no increased effort of breathing. Abdomen: Soft, nontender. Extremities: Trace edema in lower extremities bilaterally. Results & Data Results & Data ([facility]) Vital Signs (Past 12 Hours) Vital Signs Temp Pulse Pulse Resp BP BP Pulse Ox 10/14/19 05:15 91 H 18 132/96 98 10/14/19 05:00 108 H 132/92 10/14/19 04:59 108 H 18 132/92 96 10/14/19 04:36 99 H 18 144/97 H 98 10/14/19 04:20 120 H 122/89 10/14/19 03:45 36.9 C 115 H 18 231/108 H 97 Supervising Physician Co-Signing Physician Notes Attending addendum: I have physically seen this patient, have supervised the medical residents activities, and agree with the H&P unless as otherwise noted. Assessment and Plan: Food bolus/impaction of esophagus- Patient reports that he was eating chicken, and thinks it has been stuck in his lower esophagus for the last 2 days. He has been unable to take medications or eat foods. He reports intermittent issues over the past 10 years, but all have resolved in a much shorter length of time compared to this episode. ED has consulted gastroenterology, and for emergent procedure. Patient should ultimately have a video swallow/assessment by speech therapy due to ongoing symptoms. Atrial fibrillation- Hold Eliquis and carvedilol due to inability to swallow and preprocedure. We will have Lopressor 5 mg IV every 4 hours as needed available. TAURUS- Creatinine upon admission 1.46 is above his baseline of 1.13. Given 500 mL bolus of normal saline in the ED. Continue IV fluid rehydration with normal saline at 80 mils per hour for another 500 cc. Remainder of orders and notations as noted. Resident Activity Tracking Resident Involvement: Resident Care Provided Care Provided: Adult Hospital Medicine (1) Food impaction of esophagus Encounter type: initial encounter Qualified Code(s): T18.128A - Food in esophagus causing other injury, initial encounter
[2019-10-14] MEDS ORDERED: SODIUM CHLORIDE 0.9% 500 ML IV SCH (07:14)
[2019-10-14] MEDS ORDERED: ACETAMINOPHEN 1000 MG/100 ML IV IV PRN (07:14)
--- NOTE | 2019-10-14 07:36 | XRay Report ---
XR chest 1V portable CLINICAL HISTORY: Food bolus dysphagia COMPARISON STUDY: 05/07/2019 FINDINGS: Mild stable cardiomegaly. Parenchymal scarring left lung base. Lungs otherwise appear clear . Old bilateral healed rib fractures. IMPRESSION: Mild cardiomegaly. No acute process. ACT 112: Negative or not required by law. The above report was generated using voice recognition software. It may contain grammatical, syntax or spelling errors. Electronically signed by: Vick Zendejas M.D. 10/14/2019 7:35 AM
--- NOTE | 2019-10-14 07:48 | CT Scan Report ---
CT SCAN OF THE CHEST WITHOUT IV CONTRAST CLINICAL HISTORY: Retained food bolus. Dysphagia. COMPARISON STUDY: Chest x-ray dated 10/14/2019. TECHNIQUE: CT scan of the thorax was performed from the thoracic inlet to the upper abdomen. Images are reviewed in the axial, sagittal, and coronal planes. IV contrast was not administered for this ex amination as per the referring clinician. A dose lowering technique was utilized adhering [facility]. CT DOSE: 1122.32 mGy.cm FINDINGS: Thyroid: Imaged portions of the thyroid gland are normal in size and attenuation. Thoracic aorta: The thoracic aorta is normal in caliber and demonstrates bovine variant arch anatomy. Heart: The heart is normal in size and without pericardial effusion. Lungs and pleural spaces: There is no airspace consolidation or pleural effusion. The trachea and av tral airways are clear. A 1.9 cm linear tubular/nodular density at the left lung base seen on image # 248 likely represents an impacted bronchus with associated atelectasis. An adjacent 4 mm nodule is se en image #237. A 3 mm pleural-based nodule is seen at the right lung base on image #195. Mediastinum: There is no pneumomediastinum. Scattered subcentimeter mediastinal lymph nodes are not p athologically enlarged by size criteria. Janice: Not well assessed without IV contrast. Axillae: There is no axillary lymphadenopathy. Upper abdomen: The esophagus is normal as visualized. A small hiatal hernia is noted. Partially image d upper abdominal viscera is otherwise grossly unremarkable. Skeletal structures: No lytic or blastic bony lesions are seen. IMPRESSION: 1. No acute abnormalities identified. 2. There is no airspace consolidation or pleural effusion. 3. A 1.9 cm linear tubular/nodular density at the left lung base likely represents an impacted bronch us and atelectasis. A repeat chest CT in 3-6 months time is recommended for reassessment. 4. Small hiatal hernia. 5. Additional findings as above. ACT 112: Negative or not required by law. Electronically signed by: Bala Wisdom M.D. 10/14/2019 7:47 AM
[2019-10-14] MEDS: PANTOprazole 40 MG in SYRINGE 0 ML IV SCH ×2 (08:08→20:50)
[2019-10-14] MEDS ORDERED: PROPOFOL IV EMULSION 10 MG/ML 20 ML VIAL IV ONE (10:20)
[2019-10-14] MEDS ORDERED: LIDOCAINE HCL 2% 2 ML VIAL/AMP(20MG/ML) INFIL ONE (10:20)
[2019-10-14] MEDS ORDERED: fentaNYL citrate 100 MCG/2 ML VIAL ONE (10:20)
[2019-10-14] MEDS ORDERED: ONDANSETRON INJ 2 MG/ML 2 ML VIAL ONE (10:20)
[2019-10-14] MEDS ORDERED: SUCCINYLCHOLINE CHLORIDE 20 MG/ML 10 ML VIAL IV ONE (10:20)
--- NOTE | 2019-10-14 10:48 | Gastrointestinal Consultation ---
Date of Consultation October 14, 2019 Assessment & Plan (1) Food impaction of esophagus: Proceed with EGD. risks/benefits and procedure discussed with patient, who agrees to proceed keep NPO History of Present Illness Attending Physician: Aaron Sy 64 yo male here with food bolus impaction. He has a hx multiple food bolus impactions over the last 10 years, but this one is different as it has lasted for 2 days plus now. He notes eating potato salada and then chicken, feels like chicken is stuck. Has a hx of GERD as well. On eliquis for afib but last dose 48 hours ago. Having issues swallowing his saliva and secretions. labs reviewed. Allergies Allergy/AdvReac Type Severity Reaction Status Date / Time shrimp Allergy Severe swelling Verified 10/14/19 04:23 face, lips Home Medications Home Medications Medication Instructions Recorded Confirmed Type esomeprazole magnesium [Nexium] 20 mg PO DAILY 05/07/19 10/14/19 History apixaban 5 mg tablet 5 mg PO BID #180 tab 08/15/19 10/14/19 Rx sacubitril 97 mg-valsartan 103 mg 1 tab PO BID #180 tab 08/15/19 10/14/19 Rx tablet furosemide 40 mg tablet 40 mg PO DAILY PRN #30 tab 09/27/19 10/14/19 Rx carvedilol 25 mg tablet 37.5 mg PO BID #270 tab 10/10/19 10/14/19 Rx Patient History Medical History (Updated 10/14/19 @ 05:14 by Tito Castellon MD) Atrial fibrillation Cardiomyopathy Chronic systolic congestive heart failure Dysphagia nexium for dysphagia. denies acid reflux Hiatal hernia Hypertension New onset atrial fibrillation (Inactive) Obstructive sleep apnea cpap Osteoarthritis Shortness of breath on exertion Surgical History H/O right inguinal hernia repair History of cardiac cath 04/2019 [facility]. no stents History of esophagogastroduodenoscopy (EGD) History of hip surgery left hip relocation and repair as a child History of tonsillectomy Social History Preferred Language: B[place] Communication Ability: Effective Pizza Delivery Driver Required: No Beliefs That Will Affect Care: None Current Living Situation: Alone Current Living Situation Comment: caring for 92 year old father who is bedridden currently. Other Information That Helps Us Care for You: No Feels Safe at Home: Yes Safety Concerns: Feels Safe At This Time Smoking Status: Never smoker Do You Dip or Chew Tobacco: No ; Second Hand Exposure: No ; Tobacco Cessation Education Requested by Patient: No Hx Alcohol Use: No Hx Substance Use: No Review of Systems Constitutional: no fever, no chills and no weight loss Eyes: as per Subjective / HPI Ear, Nose, Mouth, Throat: as per Subjective / HPI Respiratory: no dyspnea and no dyspnea on exertion Cardiovascular: no chest pain and no palpitations Gastrointestinal: as per Subjective / HPI Musculoskeletal: no joint pain and no swelling Integumentary: no rash and no lesions Neurologic: no numbness and no paresthesia Psychiatric: no depression and no anxiety Endocrine: no fatigue Hematologic / Lymphatic: no easy bleeding and no easy bruising Physical Exam Constitutional: WD/WN, vitals as above Eyes: EOM intact bilaterally Neck: normal visual inspection Respiratory: normal respiratory effort, lungs clear to auscultation Cardiovascular: RRR, no murmur, no edema Gastrointestinal (Abdomen): Inspection/Auscultation: abdomen normal to inspection; abdomen not distended Percussion/Palpation: abdomen soft; abdomen nontender and no hepatosplenomegaly Musculoskeletal: Extremities: no cyanosis Gait: normal gait Skin: no rashes, warm and dry Neurologic: moves all extremities Psychiatric: A+Ox3, euthymic affect Results & Data ([facility]) Vital Signs (Past 12 Hours) Vital Signs Temp Pulse Pulse Pulse Resp BP BP 10/14/19 06:48 37.0 C 99 H 16 153/93 H 10/14/19 06:08 94 H 18 128/87 10/14/19 05:15 91 H 18 132/96 10/14/19 05:00 108 H 132/92 10/14/19 04:59 108 H 18 132/92 10/14/19 04:36 99 H 18 144/97 H 10/14/19 04:20 120 H 122/89 10/14/19 03:45 36.9 C 115 H 18 231/108 H Pulse Ox 10/14/19 06:48 96 10/14/19 06:08 96 10/14/19 05:15 98 10/14/19 05:00 10/14/19 04:59 96 10/14/19 04:36 98 10/14/19 04:20 10/14/19 03:45 97 PG Care Time/CCT Total # of Minutes Spent Total Time Spent with Patient: Total time spent is greater than 50% in coordination of care (as documented) at patient's floor/unit and/or counseling patient: Coding Level of Care Code 69836 Inpt Consult Level 4 Diagnoses Food impaction of esophagus T18.128A Encounter type: initial encounter (1) Food impaction of esophagus Encounter type: initial encounter Qualified Code(s): T18.128A - Food in esophagus causing other injury, initial encounter
[2019-10-14] MEDS ORDERED: METOPROLOL TARTRATE 1 MG/ML VIAL IV ONE (11:34)
--- NOTE | 2019-10-14 13:41 | GI REPORT ---
Patient Name: Loco Robin Procedure Date: 10/14/2019 11:54 AM Date of : 1955 Admit Type: Inpatient Age: 64 Gender: Male Attending MD: Kalyan Mtz MD Procedure: Upper GI endoscopy Providers: Kalyan Mtz MD Referring MD: Aaron Sy M.d. Indications: Dysphagia, Foreign body in the esophagus Medicines: Monitored Anesthesia Care Complications: No immediate complications. Estimated blood loss: None. Estimated Blood Loss: Estimated blood loss: none. Procedure: Pre-Anesthesia Assessment: - Prior Anticoagulants: The patient has taken no previous anticoagulant or antiplatelet agents. - ASA Grade Assessment: II - A patient with mild systemic disease. After obtaining informed consent, the endoscope was passed under direct vision. Throughout the procedure, the patient's blood pressure, pulse, and oxygen saturations were monitored continuously. The Endoscope was introduced through the mouth, and advanced to the second part of duodenum. The upper GI endoscopy was accomplished without difficulty. The patient tolerated the procedure well. Findings: Moderately severe esophagitis was found in the distal esophagus along with some necrosis. Biopsies were taken with a cold forceps for histology. Estimated blood loss: none. No evidence of food in the entire esophagus. A single 12 mm sessile polyp with no bleeding and no stigmata of recent bleeding was found in the gastric fundus. The polyp was removed with a cold snare. Resection and retrieval were complete, a ayers net was used to retrieve the polyp. Estimated blood loss: none. Localized moderate inflammation characterized by erythema was found in the gastric antrum. Biopsies were taken with a cold forceps for Helicobacter pylori testing. Estimated blood loss: none. The duodenal bulb and second portion of the duodenum were normal. Impression: - Moderately severe esophagitis. Biopsied. - A single gastric polyp. Resected and retrieved. - Gastritis. Biopsied. - Normal duodenal bulb and second portion of the duodenum. Recommendation: - Return patient to [facility] for ongoing care. - Clear liquid diet today. - Await pathology results. Kalyan Mtz MD 10/14/2019 1:40:43 PM This report has been signed electronically. Note Initiated On: 10/14/2019 11:54 AM Number of Addenda: 0 I attest to the content of the Intraoperative Record and orders documented therein, exceptions below {[id number]}
--- NOTE | 2019-10-14 13:42 | Procedure Note ---
Procedure Note Date of Service October 14, 2019 GI brief post op note EGD findings: esophagitis with some possible necrosis of distal esophagus, biopsied. No food in entire esophagus nor stomach. gastric polyp removed, gastritis biopsied. Recs: clear liquid diet today supportive care PPI daily f/u path results Kalyan Mtz MD Gastroenterology Coding
--- NOTE | 2019-10-14 14:06 | Anesthesiology Progress Note ---
Date of Service October 14, 2019 Anesthesia Post Procedure Vital Signs Vital Signs: Temp Pulse Pulse Pulse Resp BP BP 10/14/19 13:55 95 H 16 130/92 10/14/19 13:45 89 15 146/88 H 10/14/19 13:36 37.8 C H 95 H 21 122/85 10/14/19 11:58 36.7 C 97 H 20 146/82 H 10/14/19 11:35 102 H 154/94 H 10/14/19 07:40 99 H 10/14/19 06:48 37.0 C 99 H 16 153/93 H 10/14/19 06:08 94 H 18 128/87 10/14/19 05:15 91 H 18 132/96 10/14/19 05:00 108 H 132/92 10/14/19 04:59 108 H 18 132/92 10/14/19 04:36 99 H 18 144/97 H 10/14/19 04:20 120 H 122/89 10/14/19 03:45 36.9 C 115 H 18 231/108 H Pulse Ox 10/14/19 13:55 99 10/14/19 13:45 100 10/14/19 13:36 98 10/14/19 11:58 96 10/14/19 11:35 10/14/19 07:40 10/14/19 06:48 96 10/14/19 06:08 96 10/14/19 05:15 98 10/14/19 05:00 10/14/19 04:59 96 10/14/19 04:36 98 10/14/19 04:20 10/14/19 03:45 97 Pain Intensity Throat: Pain Intensity: 3 Transfer of Care Handoff Completed per policy Notes Mental Status: alert / awake / arousable and participated in evaluation Patient Amnestic to Procedure: Yes Nausea / Vomiting: adequately controlled Pain: adequately controlled Airway Patency, RR, SpO2: stable & adequate BP & HR: stable & adequate Hydration State: stable & adequate Anesthetic Complications: no major complications apparent and Pt Satisfied with anesthetic care
--- NOTE | 2019-10-14 14:08 | Anesthesiology Progress Note ---
Date of Service October 14, 2019 Anesthesia Post Procedure Vital Signs Vital Signs: Temp Pulse Pulse Pulse Resp BP BP 10/14/19 14:05 89 15 148/95 H 10/14/19 13:55 95 H 16 130/92 10/14/19 13:45 89 15 146/88 H 10/14/19 13:36 37.8 C H 95 H 21 122/85 10/14/19 11:58 36.7 C 97 H 20 146/82 H 10/14/19 11:35 102 H 154/94 H 10/14/19 07:40 99 H 10/14/19 06:48 37.0 C 99 H 16 153/93 H 10/14/19 06:08 94 H 18 128/87 10/14/19 05:15 91 H 18 132/96 10/14/19 05:00 108 H 132/92 10/14/19 04:59 108 H 18 132/92 10/14/19 04:36 99 H 18 144/97 H 10/14/19 04:20 120 H 122/89 10/14/19 03:45 36.9 C 115 H 18 231/108 H Pulse Ox 10/14/19 14:05 95 10/14/19 13:55 99 10/14/19 13:45 100 10/14/19 13:36 98 10/14/19 11:58 96 10/14/19 11:35 10/14/19 07:40 10/14/19 06:48 96 10/14/19 06:08 96 10/14/19 05:15 98 10/14/19 05:00 10/14/19 04:59 96 10/14/19 04:36 98 10/14/19 04:20 10/14/19 03:45 97 Pain Intensity Throat: Pain Intensity: 3 Transfer of Care Handoff Completed per policy Notes Mental Status: alert / awake / arousable and participated in evaluation Patient Amnestic to Procedure: Yes Nausea / Vomiting: adequately controlled Pain: adequately controlled Airway Patency, RR, SpO2: stable & adequate BP & HR: stable & adequate Hydration State: stable & adequate Anesthetic Complications: no major complications apparent and Pt Satisfied with anesthetic care
--- NOTE | 2019-10-14 14:08 | Anesthesiology Consultation ---
Date of Service October 14, 2019 Assessment & Plan ASA ASA3 Proposed Anesthesia Anesthesia Type: General Risk / Benefits Reviewed With: PT / POA / Parent / Guardian, Accepts Plan and Informed Consent Obtained Additional Comments: pt seen prior to case but called for an emergency code prior to entry of record History Surgery Operation Date: 10/14/19 12:00 Proposed Procedures p EGD Foreign Body Removal - Kalyan Mtz MD Height/Weight Height: 5 ft 10 in Weight: 144.7 kg Allergies Allergy/AdvReac Type Severity Reaction Status Date / Time shrimp Allergy Severe swelling Verified 10/14/19 04:23 face, lips Medications Home Medications Medication Instructions Recorded Confirmed Last Taken esomeprazole magnesium [Nexium] 20 mg PO DAILY 05/07/19 10/14/19 05/07/19 apixaban 5 mg tablet 5 mg PO BID #180 tab 08/15/19 10/14/19 Unknown sacubitril 97 mg-valsartan 103 mg 1 tab PO BID #180 tab 08/15/19 10/14/19 Unknown tablet furosemide 40 mg tablet 40 mg PO DAILY PRN #30 tab 09/27/19 10/14/19 Unknown carvedilol 25 mg tablet 37.5 mg PO BID #270 tab 10/10/19 10/14/19 Unknown Active Medications Generic Name Dose Route Start Last Admin Trade Name Freq PRN Reason Stop Dose Admin Pantoprazole Sodium 40 mg/ 10 mls @ 5 mls/min 10/14/19 09:00 10/14/19 08:08 Syringe IV 11/13/19 08:59 5 mls/min BID BARRY Administration NPO Date Last Intake of Fluids: 10/11/19 Time Last Intake of Fluids: 21:00 Date Last Intake of Solids: 10/12/19 Time Last Intake of Solids: 11:30 Past Medical History Medical History Atrial fibrillation Cardiomyopathy Chronic systolic congestive heart failure Dysphagia nexium for dysphagia. denies acid reflux Hiatal hernia Hypertension New onset atrial fibrillation (Inactive) Obstructive sleep apnea cpap Osteoarthritis Shortness of breath on exertion Exercise / Class Metabolic Activity II 4-5 Yardwork/Stairs/Walk up hill Past Family History Family History Sister Family hx of colon cancer Past Surgical History Surgical History H/O right inguinal hernia repair History of cardiac cath 04/2019 [facility]. no stents History of esophagogastroduodenoscopy (EGD) History of hip surgery left hip relocation and repair as a child History of tonsillectomy Past Anesthesia History No Hx of Anesthesia Complications and No Family Hx of Anesthesia Complications History of PONV No Hx of PONV and No Hx of Motion Sickness Social History Smoking Status: Never smoker Do You Dip or Chew Tobacco: No Hx Alcohol Use: No Hx Substance Use: No substance use type: does not use Review of Systems denies fever/cough/ colds/ chest pain/ SOB/ DONNA Constitutional: no fever and no chills Respiratory: no cough and no dyspnea denies DONNA Cardiovascular: no chest pain and no dyspnea on exertion Physical Exam Vital Signs Last Vital Signs Temp 37.8 C H 10/14/19 13:36 Pulse 89 10/14/19 14:05 Resp 15 10/14/19 14:05 BP 148/95 H 10/14/19 14:05 Pulse Ox 95 10/14/19 14:05 ENMT Mouth: no TMJ abnormality and no dentition abnormality Thyromental Distance: > or= 3.5 Finger Breadths Mallampati Class: II Neck neck extension not limited Respiratory normal respiratory effort; no respiratory distress Auscultation: lungs clear to auscultation bilaterally Cardiovascular Rate/Rhythm: regular rate and regular rhythm Neurologic moves all extremities Psychiatric Orientation: alert and oriented x 3 Testing Laboratory Results 10/14/19 04:05 10/14/19 04:05 PT 11.7 Seconds (9.0-12.0) 10/14/19 04:05 INR 1.1 (0.9-1.1) 10/14/19 04:05 APTT 31.0 Seconds (21.0-31.0) 10/14/19 04:05
--- NOTE | 2019-10-14 14:31 | Electrocardiogram Report ---
Test Reason : Blood Pressure : / mmHG Vent. Rate : 129 BPM Atrial Rate : 120 BPM P-R Int : 000 ms QRS Dur : 092 ms QT Int : 338 ms P-R-T Axes : 000 014 007 degrees QTc Int : 495 ms Atrial fibrillation with rapid ventricular response Incomplete right bundle branch block Abnormal ECG When compared with ECG of 22-JUN-2019 07:43, Atrial fibrillation has replaced Sinus rhythm Vent. rate has increased BY 51 BPM Confirmed by Piero Fortune ([id number]) on 10/14/2019 2:30:30 PM Referred By: REFERRED SELF Confirmed By:Piero Fortune
--- NOTE | 2019-10-15 05:34 | Billing Data ---
Date of Service October 15, 2019 Coding Level of Care Code 05967 OBS Care - Level 3
[2019-10-15 08:37] LABS: BUN Creatinine Ratio 17.5 (10-20); Calcium 8.5 mg/dl (8.5-10.1); Est GFR (African American) 77.8; Est GFR (Non-African American) 67.1; Magnesium 2.1 mg/dl (1.8-2.4); Potassium 3.5 mmol/L (3.5-5.1)
[2019-10-15] MEDS: PANTOprazole 40 MG in SYRINGE 0 ML IV SCH (08:50)
[2019-10-15 08:53] LABS: Basophils # (auto) 0.02 K/uL (0-0.2); Basophils % (auto) 0.2 %; Eosinophils # (auto) 0.22 K/uL (0-0.5); Eosinophils % (auto) 2.2 %; Hematocrit (blood only) 45.5 % (42-52); Immature Granulocytes # (auto) 0.02 K/uL (0.00-0.02); Immature Granulocytes % (auto) 0.2 %; Lymphocytes # (auto) 1.55 K/uL (1.2-3.4); Lymphocytes % (auto) 15.8 %; Mean Corpuscular Volume 87.8 fL (80-100); Monocytes # (auto) 1.17 K/uL (0.11-0.59); Neutrophils % (auto) 69.6 %; Platelet Count 203 K/uL (130-400); RDW Coefficient of Variation 14.7 % (11.5-14.5); RDW Standard Deviation 47.3 fL (36.4-46.3); Red Blood Count 5.18 M/uL (4.7-6.1); White Blood Count 9.78 K/uL (4.8-10.8)
--- NOTE | 2019-10-15 16:26 | Discharge Summary ---
Date of Service October 15, 2019 Admission HPI Per Admitting Provider Pt is a 64yo with PMHx of GERD, atrial fibrillation on Eliquis, nonischemic cardiomyopathy, HFrEF and HTN who presents with the complaint of chicken being stuck in his esophagus. States this is a regular event for him for the last 10 years but it has never lasted 2 days like it is currently. Does not believe he was ever worked up with a barium swallow. States he almost had an endoscopy for the same about 2 years prior but it resolved before the procedure. Describes the sensation in his chest as burning and sharp, feels like it had lessened yesterday. Had a bowl of potato salad before the chicken on Tuesday about 11AM which went down ok. Has a Hx of GERD but does not feel like this is similar in sensation. Has felt significant relief with Ativan given by ED for pain. Principal Diagnosis Possible food impaction vs. necrosis of esophagus Discharge Exam Constitutional WD/WN, vitals as above Eyes EOM intact bilaterally; no conjunctival abnormality ENMT external ear and nose normal, oropharynx normal Neck trachea midline, no thyromegaly normal visual inspection Respiratory normal respiratory effort, lungs clear to auscultation no respiratory distress Cardiovascular RRR, no murmur, no edema Gastrointestinal (Abdomen) Inspection/Auscultation: abdomen normal to inspection; abdomen not distended Musculoskeletal no cyanosis or clubbing, extremities motor strength 5/5 Skin no rashes, warm and dry Neurologic moves all extremities and awake Psychiatric Orientation: alert, oriented to person and cooperative Discharge Data Allergies Allergy/AdvReac Type Severity Reaction Status Date / Time shrimp Allergy Severe swelling Verified 10/14/19 04:23 face, lips Consultations 10/14/19 04:52 Consult Gastroenterology Stat ED Decision to Admit Stat Procedures Performed Operation Date: 10/14/19 12:00 Actual Procedures p Upper gastrointestinal endoscopy with biopsy(Not Applicable) - Kalyan Mtz MD Ordered Studies 10/14/19 06:19 CT chest wo con Urgent Hospital Course (1) Food impaction of esophagus: EGD with Dr. Mtz on 10/13. This showed esophagitis with some areas of necrosis. Biopsies taken. - Started on PPI daily x 4 weeks. Will follow up with GI in the clinic for pathology results. Total Time Total Time Spent Total Time Spent (In Minutes): 35 Discharge Plan Discharge Items Patient Disposition: Home - Self-Care Reason For Visit: FOOD LODGED IN THROAT Discharge Diagnosis: Possible food impaction and esophageal irritation Activity: Resume your previous activity Non-emergency contact: Primary Care Provider and Motor Polarizer Call non-emergency contact if: your symptoms worsen and your pain is worsening Follow-up/Referrals: Kalyan Mtz MD [Physician] - 10/25/19 3:50 pm (Please follow up in 2 weeks. If you need to change this appointment, please call [phone].) Juan Nelson III, CRNP [Outside Practitioners] - 10/23/19 2:45 pm (You were already scheduled to see Juan Nelson. Please keep this appointment. Thank you.) Diet: Regular Addtl Attending Provider Instructions: You were admitted with trouble swallowing. The GI doctor did a scope that saw irritation in the lower part of your esophagus. They took some samples. They would like you to start on an acid-blocking medication called pantoprazole 1 time per day until you see them in the clinic. They took some samples of your stomach and esophagus and will talk with you about the results. Pending Studies at Discharge: Yes Studies:: Biopsy results Stand-Alone Forms: [facility] AdECN, Smoking Cessation Medications and DC Order Prescriptions: New pantoprazole 40 mg tablet,delayed release (DR/EC) 40 mg PO DAILY 28 Days Qty: 28 RF: 0 Continued furosemide [Lasix] 40 mg tablet 40 mg PO DAILY PRN (Reason: weight gain, edema, shortness of breath) Qty: 30 RF: 2 carvedilol 25 mg tablet 37.5 mg PO BID Qty: 270 RF: 3 Entresto 97-103 mg tablet 1 tab PO BID Qty: 180 RF: 3 Eliquis 5 mg tablet 5 mg PO BID Qty: 180 RF: 3 Discontinued esomeprazole magnesium [Nexium] 20 mg Capsule,Delayed Release(Dr/Ec) 20 mg PO DAILY RF: 0 Discharge Orders: Discharge Order (Routine); Ordered 10/15/19 Ordered By: Tremayne Sanabria Admission Data Admit Date/Time: 10/14/19 05:39 Attending Provider: Tremayne Sanabria Admit Provider: Jacqueline Deluca Primary Care Provider: Kishan Wyman Other Providers: Kalyan Mtz ; Tremayne Sanabria Other Interventions: Discharge Summary Assessment (RN) Last Done: 10/15/19 11:56 DC Date/Time DO NOT enter until pt leaves facility: 10/15/19 12:43 Coding Level of Care Code 36321 OBS Care - Discharge Diagnoses Food impaction of esophagus T18.128A Encounter type: initial encounter
== END 2019-10-15 12:43 | disposition home or self-care (01) ==
LOC: 2N 03:38 → ED 03:38 → SUATTDRO 05:39 → 2N 06:20